=== PATIENT | female | born 1990 | race Caucasian/White ===

== ENCOUNTER 2016-04-08 14:08 | Emergency (ER) | payer BC, SELFPAY ==
[2016-04-08 15:39] LABS: MEAN CORPUSCULAR HEMOGLOBIN 30.1 pg (27.0-33.0); MEAN CORPUSCULAR HGB CONC 33.6 g/dl (32.0-36.5); MEAN CORPUSCULAR VOLUME 89.6 fl (80.0-96.0); RED CELL DISTRIBUTION WIDTH 12.3 % (11.5-14.5); WHITE BLOOD COUNT 10.4 K/mm3 (4.0-10.0)
[2016-04-08 16:24] LABS: ANION GAP 9 MEQ/L (8-16); BLOOD UREA NITROGEN 15 MG/DL (7-18); CALCIUM LEVEL 9.5 MG/DL (8.5-10.1); CARBON DIOXIDE LEVEL 25 MEQ/L (21-32); CHLORIDE LEVEL 107 MEQ/L (98-107); CREATININE FOR GFR 0.66 MG/DL (0.55-1.02); GLOMERULAR FILTRATION RATE > 60.0 (>60); GLUCOSE, FASTING 81 MG/DL (70-105); HCG, SERUM QUANTITATIVE 56550 MIU/ML; POTASSIUM SERUM 3.9 MEQ/L (3.5-5.1); SODIUM LEVEL 141 MEQ/L (136-145)
--- NOTE | 2016-04-08 18:00 | EDDOCDS ---
Nurse's Notes [facility] Name: Hue Adams Age: 26 yrs Sex: Female : 1990 Arrival Date: 04/08/2016 Time: 14:08 Bed 8 Private MD: Angie Mccord Abdul Diagnosis: 8 weeks gestation of Presentation: 04/08 14:15 Presenting complaint: Patient states: low abdominal pain for several days. Reports has kr3 had 2 positive home test but she is unable to get due to endometreosis. Risk factors: the patient reports no vaginal bleeding. Adult Sepsis Screening: The patient does not have new or worsening altered mentation. Patient's respiratory rate is less than 22. Systolic blood pressure is greater than 100. Patient has a qSOFA score of 0- Negative Sepsis Screen. Suicide/Homicide risk assessment- the patient denies having any suicidal and/or homicidal ideations and does not present with any other emotional, behavioral or mental health complaints. Status: Patient is not a business services sales representative or dependent. Transition of care: patient was not received from another setting of care. 14:15 Acuity: TANIA Level 3 kr3 14:15 Method Of Arrival: Walkin/Carried/Asstd kr3 Triage Assessment: 14:17 General: Appears distressed, Behavior is appropriate for age, cooperative. Pain: kr3 Location: right lower quadrant and left lower quadrant Pain currently is 8 out of 10 on a pain scale. Pain: Quality of pain is described as stabbing. HIV screening NA for this visit Offered previously. Respiratory: Respiratory effort is even, unlabored. GI: Reports nausea. : Denies vaginal bleeding. Derm: Skin is pink, warm & dry. 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 none - PMHx: Lupus; Endometriosis; Polycystic Ovary Disease; - PSHx: none; - Social history: Smoking status: Patient uses tobacco products, current every day smoker. No barriers to communication noted, The patient speaks fluent Tajik, Speaks appropriately for age. - Family history: Not pertinent. - : The pt / caregiver states he / she is not on anticoagulants. Home medication list is obtained from the patient. - Exposure Risk Screening:: None identified. Screenin:34 Screening information is obtained from the patient. Fall risk: No risks identified. mlb1 Assistance ADL's: requires no assistance with activities of daily living. Abuse/DV Screen: The patient / caregiver reports he/she is: not in a situation that causes fear, pain or injury. Nutritional screening: No deficits noted. Advance Directives: Currently, there is no health care proxy. home support is adequate. Assessment: 15:33 General: Appears in no apparent distress, comfortable, Behavior is appropriate for age, mlb1 cooperative. Pain: Location: left lower quadrant and right lower quadrant Pain currently is 8 out of 10 on a pain scale. GI: Abdomen is obese, Bowel sounds present X 4 quads. Abd is soft X 4 quads Abd is tender to palpation in right lower quadrant and left lower quadrant Reports nausea. Derm: No deficits noted. 16:30 General: Appears in no apparent distress, comfortable, Behavior is appropriate for age, mlb1 cooperative. Pain: Location: left lower quadrant and right lower quadrant Pain currently is 8 out of 10 on a pain scale. Respiratory: No deficits noted. 17:30 General: Appears in no apparent distress, comfortable, Behavior is appropriate for age, mlb1 cooperative. Pain: Location: left lower quadrant and right lower quadrant Pain currently is 6 out of 10 on a pain scale. Respiratory: No deficits noted. 17:59 General: Appears in no apparent distress, comfortable, Behavior is appropriate for age, mlb1 cooperative. Pain: Location: left lower quadrant and right lower quadrant Pain currently is 6 out of 10 on a pain scale. Respiratory: No deficits noted. Vital Signs: 14:10 BP 126 / 68; Pulse 98; Resp 18 S; Temp 97.2(O); Pulse Ox 99% on R/A; Weight 81.65 kg gr2 (R); Height 5 ft. 7 in. (170.18 cm) (R); Pain 10/10; 17:58 BP 145 / 83; Pulse 72; Resp 16; Temp 97.4(TE); Pulse Ox 98% on R/A; Pain 6/10; mlb1 14:10 Body Mass Index 28.19 (81.65 kg, 170.18 cm) gr2 Vitals: 14:10 Log In Time: April 08, 2016 at 14:10. gr2 ED Course: 14:10 Patient visited by Isamar Reyes. gr2 14:10 Angie Mccord is Private Physician. gr2 14:10 Patient moved to Waiting gr2 14:11 Patient visited by Isamar Reyes. gr2 14:11 Patient moved to Pre RCE gr2 14:16 Triage Initiated kr3 14:51 Patient moved to 8 kr3 14:56 [facility] ke 14:56 Patient visited by Tam Bueno FNP. ke 14:56 Patient visited by Tam Bueno FNP. ke 15:23 [facility] Payment Agreement was scanned into [email or web address] and attached to record. gjb 15:32 Patient visited by Tam Bueno FNP. ke 15:33 BMP Sent. mlb1 15:33 CBC Sent. mlb1 15:33 Urine Culture Sent. mlb1 15:33 UA Sent. mlb1 15:33 Hcg, Serum Quantitative Sent. mlb1 15:33 Type & Screen Sent. mlb1 15:34 Inserted saline lock: 20 gauge in left antecubital area and blood collected. The mlb1 patient tolerated the procedure well. No procedures done that require assistance. 15:35 Patient visited by Ke Marcelo RN. mlb1 15:35 The patient / caregiver is instructed regarding the plan of care and ED course. mlb1 16:03 Patient visited by Tam Bueno FNP. ke 16:41 Patient visited by Tam Bueno FNP. ke 16:50 Patient moved to Ultrasound am17 16:59 Patient moved to 8 am17 17:16 Patient visited by Tam Bueno FNP. ke 17:24 Ernie Poole MD is Referral Physician. ke 17:57 Patient visited by Ke Marcelo, RN. mlb1 17:57 Discontinued lock intact, bleeding controlled, pressure dressing applied, No mlb1 redness/swelling at site. 18:00 Patient visited by Ke Marcelo, DELMA. mlb1 Order Results: Lab Order: Type & Screen; SPEC'M 04/08/16 15:28 Test: BLOOD TYPE; Value: B POS; Status: F Test: AB SCREEN (INDIRECT ROCIO)GEL; Value: NEGATIVE; Status: F Lab Order: Hcg, Serum Quantitative; SPEC'M 04/08/16 15:28 Test: HCG, SERUM QUANTITATIVE; Value: [id number]; Units: MIU/ML; Status: F Test Note: ; GESTATIONAL AGE APPROXIMATE HCG RANGE (MIU/ML) 0.2-1 WEEK 5-50 1-2 WEEKS 50-500 2-3 WEEKS 100-5,000 3-4 WEEKS 500-10,000 4-5 WEEKS 1,000-50,000 5-6 WEEKS 10,000-100,000 6-8 WEEKS 15,000-200,000 2-3 MONTHS 10,000-100,000 NON FEMALES LESS THAN 3.0 Patient samples may contain human heterophilic antibodies that could react with immunoassays to give falsely elevated or depressed results. This assay has been designed to minimize interference from heterophilic antibodies. Elevated hCG levels have also been associated with trophoblastic disease and nontrophoblastic neoplasms. The possibility of having these diseases should be considered before a diagnosis of is made. This test is not intended for use as a surrogate marker for aiding in the diagnosis or monitoring the treatment of cancer patients. Siemens Hordspot methodology. Lab Order: UA; SPEC'M 04/08/16 15:28 Test: APPEARANCE, URINE; Value: HAZY; Range: CLEAR; Status: F Test: COLOR, URINE; Value: YELLOW; Range: YELLOW; Status: F Test: PH,URINE; Value: 5.0; Range: 5.0-9.0; Units: UNITS; Status: F Test: SPECIFIC GRAVITY URINE AUTO; Value: 1.019; Range: 1.002-1.035; Status: F Test: PROTEIN, URINE AUTO; Value: NEGATIVE; Range: NEGATIVE; Units: mg/dL; Status: F Test: GLUCOSE, URINE (UA) AUTO; Value: NEGATIVE; Range: NEGATIVE; Units: mg/dL; Status: F Test: KETONE, URINE AUTO; Value: NEGATIVE; Range: NEGATIVE; Units: mg/dL; Status: F Test: UROBILINOGEN, URINE AUTO; Value: 0.2; Range: 0.0-2.0; Units: mg/dL; Status: F Test: BILIRUBIN, URINE AUTO; Value: NEGATIVE; Range: NEGATIVE; Status: F Test: NITRITE, URINE AUTO; Value: NEGATIVE; Range: NEGATIVE; Status: F Test: LEUKOCYTE ESTERASE, URINE AUTO; Value: 2+; Range: NEGATIVE; Abnormal: Above high normal; Status: F Test: BLOOD, URINE BLOOD; Value: 2+; Range: NEGATIVE; Abnormal: Above high normal; Status: F Test: WBC, URINE AUTO; Value: 5; Range: 0-3; Abnormal: Above high normal; Units: /HPF; Status: F Test: RBC, URINE AUTO; Value: 19; Range: 0-3; Abnormal: Above high normal; Units: /HPF; Status: F Test: BACTERIA, URINE AUTO; Value: NEGATIVE; Range: NEGATIVE; Status: F Test: SQUAMOUS EPITHELIAL CELL UR AU; Value: 2; Range: 0-6; Units: /HPF; Status: F Test: HYALINE CAST, URINE AUTO; Value: 0; Range: 0-1; Units: /LPF; Status: F Lab Order: CBC; SPEC'M 04/08/16 15:28 Test: WHITE BLOOD COUNT; Value: 10.4; Range: 4.0-10.0; Abnormal: Above high normal; Units: K/mm3; Status: F Test: RED BLOOD COUNT; Value: 4.23; Range: 4.00-5.40; Units: M/mm3; Status: F Test: HEMOGLOBIN; Value: 12.8; Range: 12.0-16.0; Units: g/dl; Status: F Test: HEMATOCRIT; Value: 37.9; Range: 36.0-47.0; Units: %; Status: F Test: MEAN CORPUSCULAR VOLUME; Value: 89.6; Range: 80.0-96.0; Units: fl; Status: F Test: MEAN CORPUSCULAR HEMOGLOBIN; Value: 30.1; Range: 27.0-33.0; Units: pg; Status: F Test: MEAN CORPUSCULAR HGB CONC; Value: 33.6; Range: 32.0-36.5; Units: g/dl; Status: F Test: RED CELL DISTRIBUTION WIDTH; Value: 12.3; Range: 11.5-14.5; Units: %; Status: F Test: PLATELET COUNT, AUTOMATED; Value: 187; Range: 150-450; Units: k/mm3; Status: F Lab Order: BMP; SPEC'M 04/08/16 15:28 Test: GLUCOSE, FASTING; Value: 81; Range: 70-105; Units: MG/DL; Status: F Test: BLOOD UREA NITROGEN; Value: 15; Range: 7-18; Units: MG/DL; Status: F Test: CREATININE FOR GFR; Value: 0.66; Range: 0.55-1.02; Units: MG/DL; Status: F Test: GLOMERULAR FILTRATION RATE; Value: > 60.0; Range: >60; Status: F Test: SODIUM LEVEL; Value: 141; Range: 136-145; Units: MEQ/L; Status: F Test: POTASSIUM SERUM; Value: 3.9; Range: 3.5-5.1; Units: MEQ/L; Status: F Test: CHLORIDE LEVEL; Value: 107; Range: 98-107; Units: MEQ/L; Status: F Test: CARBON DIOXIDE LEVEL; Value: 25; Range: 21-32; Units: MEQ/L; Status: F Test: ANION GAP; Value: 9; Range: 8-16; Units: MEQ/L; Status: F Test: CALCIUM LEVEL; Value: 9.5; Range: 8.5-10.1; Units: MG/DL; Status: F Test Note: ; Units are mL/min/1.73 m2 Chronic Kidney Disease Staging per NKF: Stage I & II GFR >=60 Normal to Mildly Decreased Stage III GFR 30-59 Moderately Decreased Stage IV GFR 15-29 Severely Decreased Stage V GFR <15 Very Little GFR Left ESRD GFR <15 on MED[employer]INAL PLANT PICKER Outcome: 17:24 Discharge ordered by Provider. ke 17:58 Discharge Assessment: Patient awake, alert and oriented x 3. No cognitive and/or mlb1 functional deficits noted. Patient verbalized understanding of disposition instructions. patient administered narcotics - no. The following High Risk Discharge criteria are identified: None. Discharged to home ambulatory. Condition: good. Discharge instructions given to patient, Instructed on discharge instructions, follow up and referral plans. Demonstrated understanding of instructions, medications, Pt was receptive of discharge instructions/ teaching. Prescriptions given X 1. Ultrasound Study completed. Property sent home with patient. 18:00 Patient left the ED. mlb1 Signatures: Tam Bueno, DEPUTY PROGRAM MANAGER DEPUTY PROGRAM MANAGER Ke Edwards RN RN mlb1 Shonad VieyraRN RN kr3 Isamar Reyes 2 Truong, Rosie am17 Toro, Marely gjb MTDD
--- NOTE | 2016-04-08 18:00 | EDDOCDS ---
Physician Documentation [facility] Name: Hue Adams Age: 26 yrs Sex: Female : 1990 Arrival Date: 04/08/2016 Time: 14:08 Bed 8 Private MD: Angie Mccord Abdul Disposition: 04/08/16 17:24 Discharged to Home/Self Care. Impression: 8 weeks gestation of . - Condition is Stable. - Discharge Instructions: First Trimester of . - Prescriptions for Zofran 4 mg Oral Tablet - take 1 tablet by ORAL route 4 times per day As needed; 10 tablet. - Medication Reconciliation, Local Pharmacy Hours form. - Follow up: Ernie Poole MD; When: 4 - 5 days; Reason: Recheck today's complaints, Continuance of care. - Problem is an ongoing problem. - Symptoms are unchanged. Historical: - Allergies: SULFA (SULFONAMIDES); - Home Meds: 1. none - PMHx: Lupus; Endometriosis; Polycystic Ovary Disease; - PSHx: none; - Social history: Smoking status: Patient uses tobacco products, current every day smoker. No barriers to communication noted, The patient speaks fluent Welsh, Speaks appropriately for age. - Family history: Not pertinent. - : The pt / caregiver states he / she is not on anticoagulants. Home medication list is obtained from the patient. - Exposure Risk Screening:: None identified. 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 7 in. (170.18 cm) (R); Pain 10/10; 17:58 BP 145 / 83; Pulse 72; Resp 16; Temp 97.4(TE); Pulse Ox 98% on R/A; Pain 6/10; mlb1 14:10 Body Mass Index 28.19 (81.65 kg, 170.18 cm) gr2 MDM: 14:58 IV Saline Lock ordered. ke 14:59 Type & Screen Ordered. EDMS 15:00 Hcg, Serum Quantitative Ordered. EDMS 15:00 UA Ordered. EDMS 15:00 CBC Ordered. EDMS 15:00 BMP Ordered. EDMS 15:00 Urine Culture Ordered. EDMS 15:23 [facility] Payment Agreement was scanned into [employer] and attached to record. gjb 15:23 Financial registration complete. gjb 16:14 UA Reviewed. ke 16:14 CBC Reviewed. ke 16:41 Type & Screen Reviewed. ke 16:41 Hcg, Serum Quantitative Reviewed. ke 16:41 BMP Reviewed. ke 16:43 US 1st trimester Ordered. EDMS Signatures: Dispatcher [employer] EDMS Tam Bueno, HOME HEALTH AIDE HOME HEALTH AIDE Ke Edwards RN RN mlb1 Shonda VieyraRN RN kr3 Marely Toro The chart was reviewed and I authenticate all verbal orders and agree with the evaluation and treatment provided.Attachments: 15:23 [facility] Payment Agreement [facility] MTDD
--- NOTE | 2016-04-08 18:03 | REP ---
First trimester OB ultrasound 04/08/2016 Indication: Pelvic pain, Comparison: None Findings: Study performed transabdominally. The date of last menstrual period 02/18/2016. Based on last menstrual period, fetus should be 7-week- 1 day with DENISE . At this time ,single intrauterine gestational sac containing a single pole is noted with crown-rump length 1.6 cm ,corresponding to 7-fncc-6-day gestational age by ultrasound. heart rate is 157 beats per minute by M-mode. A small yolk sac is identified. There is no subchorionic hemorrhage. There is no free fluid in the cul-de-sac. Left ovary was visualized measuring 3.3 x 3 x 2.0 cm. The right ovary was not visualized. Impression: Single intrauterine fetus of 6-jhez-1-day gestational age by ultrasound with heart rate 157 beats per minute by M-mode. DENISE based on today's study is 11/18/2016 No subchorionic hemorrhage. Recommend follow-up anatomy screening ultrasound at 19-20 weeks gestational age Signed by Pretty Kovacs MD 04/08/2016 05:55 P
--- NOTE | 2016-04-10 19:00 | EDDOCDS ---
Physician Documentation [facility] Name: Hue Adams Age: 26 yrs Sex: Female : 1990 Arrival Date: 04/08/2016 Time: 14:08 Bed 8 Private MD: Angie Mccord Abdul Disposition: 04/08/16 17:24 Discharged to Home/Self Care. Impression: 8 weeks gestation of . - Condition is Stable. - Discharge Instructions: First Trimester of . - Prescriptions for Zofran 4 mg Oral Tablet - take 1 tablet by ORAL route 4 times per day As needed; 10 tablet. - Medication Reconciliation, Local Pharmacy Hours form. - Follow up: Ernie Poole MD; When: 4 - 5 days; Reason: Recheck today's complaints, Continuance of care. - Problem is an ongoing problem. - Symptoms are unchanged. Historical: - Allergies: SULFA (SULFONAMIDES); - Home Meds: 1. none - PMHx: Lupus; Endometriosis; Polycystic Ovary Disease; - PSHx: none; - Social history: Smoking status: Patient uses tobacco products, current every day smoker. No barriers to communication noted, The patient speaks fluent Spanish, Speaks appropriately for age. - Family history: Not pertinent. - : The pt / caregiver states he / she is not on anticoagulants. Home medication list is obtained from the patient. - Exposure Risk Screening:: None identified. 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 7 in. (170.18 cm) (R); Pain 10/10; 17:58 BP 145 / 83; Pulse 72; Resp 16; Temp 97.4(TE); Pulse Ox 98% on R/A; Pain 6/10; mlb1 14:10 Body Mass Index 28.19 (81.65 kg, 170.18 cm) gr2 MDM: 14:58 IV Saline Lock ordered. ke 14:59 Type & Screen Ordered. EDMS 15:00 Hcg, Serum Quantitative Ordered. EDMS 15:00 UA Ordered. EDMS 15:00 CBC Ordered. EDMS 15:00 BMP Ordered. EDMS 15:00 Urine Culture Ordered. EDMS 15:23 [facility] Payment Agreement was scanned into [employer] and attached to record. gjb 15:23 Financial registration complete. gjb 16:14 UA Reviewed. ke 16:14 CBC Reviewed. ke 16:41 Type & Screen Reviewed. ke 16:41 Hcg, Serum Quantitative Reviewed. ke 16:41 BMP Reviewed. ke 16:43 US 1st trimester Ordered. EDMS 04/09 06:54 T-Sheet-- Draft Copy was scanned into [employer] and attached to record. gb Signatures: Dispatcher [employer] EDTX Arielle Monson, Reg Reg gb Tam Bueno, PSYCHIATRIC CLINICIAN PSYCHIATRIC CLINICIAN Ke Edwards RN RN mlb1 Shonda Vieyra,RN RN kr3 Marely Toro The chart was reviewed and I authenticate all verbal orders and agree with the evaluation and treatment provided.Attachments: 04/08 15:23 [facility] Payment Agreement gjb 04/09 06:54 T-Sheet-- Draft Copy gb Chart Complete MTDD
--- NOTE | 2016-04-10 19:00 | EDDOCDS ---
Nurse's Notes [facility] Name: Hue Adams Age: 26 yrs Sex: Female : 1990 Arrival Date: 04/08/2016 Time: 14:08 Bed 8 Private MD: Angie Mccord Abdul Diagnosis: 8 weeks gestation of Presentation: 04/08 14:15 Presenting complaint: Patient states: low abdominal pain for several days. Reports has kr3 had 2 positive home test but she is unable to get due to endometreosis. Risk factors: the patient reports no vaginal bleeding. Adult Sepsis Screening: The patient does not have new or worsening altered mentation. Patient's respiratory rate is less than 22. Systolic blood pressure is greater than 100. Patient has a qSOFA score of 0- Negative Sepsis Screen. Suicide/Homicide risk assessment- the patient denies having any suicidal and/or homicidal ideations and does not present with any other emotional, behavioral or mental health complaints. Status: Patient is not a internal revenue service agent or dependent. Transition of care: patient was not received from another setting of care. 14:15 Acuity: TANIA Level 3 kr3 14:15 Method Of Arrival: Walkin/Carried/Asstd kr3 Triage Assessment: 14:17 General: Appears distressed, Behavior is appropriate for age, cooperative. Pain: kr3 Location: right lower quadrant and left lower quadrant Pain currently is 8 out of 10 on a pain scale. Pain: Quality of pain is described as stabbing. HIV screening NA for this visit Offered previously. Respiratory: Respiratory effort is even, unlabored. GI: Reports nausea. : Denies vaginal bleeding. Derm: Skin is pink, warm & dry. 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 none - PMHx: Lupus; Endometriosis; Polycystic Ovary Disease; - PSHx: none; - Social history: Smoking status: Patient uses tobacco products, current every day smoker. No barriers to communication noted, The patient speaks fluent Egyptian, Speaks appropriately for age. - Family history: Not pertinent. - : The pt / caregiver states he / she is not on anticoagulants. Home medication list is obtained from the patient. - Exposure Risk Screening:: None identified. Screenin:34 Screening information is obtained from the patient. Fall risk: No risks identified. mlb1 Assistance ADL's: requires no assistance with activities of daily living. Abuse/DV Screen: The patient / caregiver reports he/she is: not in a situation that causes fear, pain or injury. Nutritional screening: No deficits noted. Advance Directives: Currently, there is no health care proxy. home support is adequate. Assessment: 15:33 General: Appears in no apparent distress, comfortable, Behavior is appropriate for age, mlb1 cooperative. Pain: Location: left lower quadrant and right lower quadrant Pain currently is 8 out of 10 on a pain scale. GI: Abdomen is obese, Bowel sounds present X 4 quads. Abd is soft X 4 quads Abd is tender to palpation in right lower quadrant and left lower quadrant Reports nausea. Derm: No deficits noted. 16:30 General: Appears in no apparent distress, comfortable, Behavior is appropriate for age, mlb1 cooperative. Pain: Location: left lower quadrant and right lower quadrant Pain currently is 8 out of 10 on a pain scale. Respiratory: No deficits noted. 17:30 General: Appears in no apparent distress, comfortable, Behavior is appropriate for age, mlb1 cooperative. Pain: Location: left lower quadrant and right lower quadrant Pain currently is 6 out of 10 on a pain scale. Respiratory: No deficits noted. 17:59 General: Appears in no apparent distress, comfortable, Behavior is appropriate for age, mlb1 cooperative. Pain: Location: left lower quadrant and right lower quadrant Pain currently is 6 out of 10 on a pain scale. Respiratory: No deficits noted. Vital Signs: 14:10 BP 126 / 68; Pulse 98; Resp 18 S; Temp 97.2(O); Pulse Ox 99% on R/A; Weight 81.65 kg gr2 (R); Height 5 ft. 7 in. (170.18 cm) (R); Pain 10/10; 17:58 BP 145 / 83; Pulse 72; Resp 16; Temp 97.4(TE); Pulse Ox 98% on R/A; Pain 6/10; mlb1 14:10 Body Mass Index 28.19 (81.65 kg, 170.18 cm) gr2 Vitals: 14:10 Log In Time: April 08, 2016 at 14:10. gr2 ED Course: 14:10 Patient visited by Isamar Reyes. gr2 14:10 Angie Mccord is Private Physician. gr2 14:10 Patient moved to Waiting gr2 14:11 Patient visited by Isamar Reyes. gr2 14:11 Patient moved to Pre RCE gr2 14:16 Triage Initiated kr3 14:51 Patient moved to 8 kr3 14:56 [facility]. ke 14:56 Patient visited by Tam Bueno FNP. ke 14:56 Patient visited by Tam Bueno FNP. ke 15:23 [facility] Payment Agreement was scanned into [employer] and attached to record. gjb 15:32 Patient visited by Tam Bueno FNP. ke 15:33 BMP Sent. mlb1 15:33 CBC Sent. mlb1 15:33 Urine Culture Sent. mlb1 15:33 UA Sent. mlb1 15:33 Hcg, Serum Quantitative Sent. mlb1 15:33 Type & Screen Sent. mlb1 15:34 Inserted saline lock: 20 gauge in left antecubital area and blood collected. The mlb1 patient tolerated the procedure well. No procedures done that require assistance. 15:35 Patient visited by Ke Marcelo RN. mlb1 15:35 The patient / caregiver is instructed regarding the plan of care and ED course. mlb1 16:03 Patient visited by Tam Bueno FNP. ke 16:41 Patient visited by Tam Bueno FNP. ke 16:50 Patient moved to Ultrasound am17 16:59 Patient moved to 8 am17 17:16 Patient visited by Tam Bueno FNP. ke 17:24 Ernie Poole MD is Referral Physician. ke 17:57 Patient visited by Ke Marcelo, DELMA. mlb1 17:57 Discontinued lock intact, bleeding controlled, pressure dressing applied, No mlb1 redness/swelling at site. 18:00 Patient visited by Ke Marcelo, DELMA. mlb1 18:11 US 1st trimester Returned. EDMS 04/09 06:54 T-Sheet-- Draft Copy was scanned into [employer] and attached to record. gb Order Results: Lab Order: Type & Screen; SPEC'M 04/08/16 15:28 Test: BLOOD TYPE; Value: B POS; Status: F Test: AB SCREEN (INDIRECT ROCIO)GEL; Value: NEGATIVE; Status: F Lab Order: Hcg, Serum Quantitative; SPEC'M 04/08/16 15:28 Test: HCG, SERUM QUANTITATIVE; Value: [id number]; Units: MIU/ML; Status: F Test Note: ; GESTATIONAL AGE APPROXIMATE HCG RANGE (MIU/ML) 0.2-1 WEEK 5-50 1-2 WEEKS 50-500 2-3 WEEKS 100-5,000 3-4 WEEKS 500-10,000 4-5 WEEKS 1,000-50,000 5-6 WEEKS 10,000-100,000 6-8 WEEKS 15,000-200,000 2-3 MONTHS 10,000-100,000 NON FEMALES LESS THAN 3.0 Patient samples may contain human heterophilic antibodies that could react with immunoassays to give falsely elevated or depressed results. This assay has been designed to minimize interference from heterophilic antibodies. Elevated hCG levels have also been associated with trophoblastic disease and nontrophoblastic neoplasms. The possibility of having these diseases should be considered before a diagnosis of is made. This test is not intended for use as a surrogate marker for aiding in the diagnosis or monitoring the treatment of cancer patients. Siemens Jumblets methodology. Lab Order: UA; SPEC'M 04/08/16 15:28 Test: APPEARANCE, URINE; Value: HAZY; Range: CLEAR; Status: F Test: COLOR, URINE; Value: YELLOW; Range: YELLOW; Status: F Test: PH,URINE; Value: 5.0; Range: 5.0-9.0; Units: UNITS; Status: F Test: SPECIFIC GRAVITY URINE AUTO; Value: 1.019; Range: 1.002-1.035; Status: F Test: PROTEIN, URINE AUTO; Value: NEGATIVE; Range: NEGATIVE; Units: mg/dL; Status: F Test: GLUCOSE, URINE (UA) AUTO; Value: NEGATIVE; Range: NEGATIVE; Units: mg/dL; Status: F Test: KETONE, URINE AUTO; Value: NEGATIVE; Range: NEGATIVE; Units: mg/dL; Status: F Test: UROBILINOGEN, URINE AUTO; Value: 0.2; Range: 0.0-2.0; Units: mg/dL; Status: F Test: BILIRUBIN, URINE AUTO; Value: NEGATIVE; Range: NEGATIVE; Status: F Test: NITRITE, URINE AUTO; Value: NEGATIVE; Range: NEGATIVE; Status: F Test: LEUKOCYTE ESTERASE, URINE AUTO; Value: 2+; Range: NEGATIVE; Abnormal: Above high normal; Status: F Test: BLOOD, URINE BLOOD; Value: 2+; Range: NEGATIVE; Abnormal: Above high normal; Status: F Test: WBC, URINE AUTO; Value: 5; Range: 0-3; Abnormal: Above high normal; Units: /HPF; Status: F Test: RBC, URINE AUTO; Value: 19; Range: 0-3; Abnormal: Above high normal; Units: /HPF; Status: F Test: BACTERIA, URINE AUTO; Value: NEGATIVE; Range: NEGATIVE; Status: F Test: SQUAMOUS EPITHELIAL CELL UR AU; Value: 2; Range: 0-6; Units: /HPF; Status: F Test: HYALINE CAST, URINE AUTO; Value: 0; Range: 0-1; Units: /LPF; Status: F Lab Order: Urine Culture; SPEC'M 04/08/16 15:28 Test: URINE CULTURE; Value: URINE CULTURE RESULT NO GROWTH; Status: F Lab Order: CBC; SPEC'M 04/08/16 15:28 Test: WHITE BLOOD COUNT; Value: 10.4; Range: 4.0-10.0; Abnormal: Above high normal; Units: K/mm3; Status: F Test: RED BLOOD COUNT; Value: 4.23; Range: 4.00-5.40; Units: M/mm3; Status: F Test: HEMOGLOBIN; Value: 12.8; Range: 12.0-16.0; Units: g/dl; Status: F Test: HEMATOCRIT; Value: 37.9; Range: 36.0-47.0; Units: %; Status: F Test: MEAN CORPUSCULAR VOLUME; Value: 89.6; Range: 80.0-96.0; Units: fl; Status: F Test: MEAN CORPUSCULAR HEMOGLOBIN; Value: 30.1; Range: 27.0-33.0; Units: pg; Status: F Test: MEAN CORPUSCULAR HGB CONC; Value: 33.6; Range: 32.0-36.5; Units: g/dl; Status: F Test: RED CELL DISTRIBUTION WIDTH; Value: 12.3; Range: 11.5-14.5; Units: %; Status: F Test: PLATELET COUNT, AUTOMATED; Value: 187; Range: 150-450; Units: k/mm3; Status: F Lab Order: PAMELA RICH'Zohreh 04/08/16 15:28 Test: GLUCOSE, FASTING; Value: 81; Range: 70-105; Units: MG/DL; Status: F Test: BLOOD UREA NITROGEN; Value: 15; Range: 7-18; Units: MG/DL; Status: F Test: CREATININE FOR GFR; Value: 0.66; Range: 0.55-1.02; Units: MG/DL; Status: F Test: GLOMERULAR FILTRATION RATE; Value: > 60.0; Range: >60; Status: F Test: SODIUM LEVEL; Value: 141; Range: 136-145; Units: MEQ/L; Status: F Test: POTASSIUM SERUM; Value: 3.9; Range: 3.5-5.1; Units: MEQ/L; Status: F Test: CHLORIDE LEVEL; Value: 107; Range: 98-107; Units: MEQ/L; Status: F Test: CARBON DIOXIDE LEVEL; Value: 25; Range: 21-32; Units: MEQ/L; Status: F Test: ANION GAP; Value: 9; Range: 8-16; Units: MEQ/L; Status: F Test: CALCIUM LEVEL; Value: 9.5; Range: 8.5-10.1; Units: MG/DL; Status: F Test Note: ; Units are mL/min/1.73 m2 Chronic Kidney Disease Staging per NKF: Stage I & II GFR >=60 Normal to Mildly Decreased Stage III GFR 30-59 Moderately Decreased Stage IV GFR 15-29 Severely Decreased Stage V GFR <15 Very Little GFR Left ESRD GFR <15 on GRADES 9 THROUGH 12 TEACHER Radiology Order: US 1st trimester Test: US 1st trimester REASON FOR EXAMINATION: pelvic pain ; First trimester OB ultrasound 04/08/2016; ; Indication: Pelvic pain, ; ; Comparison: None; ; Findings: Study performed transabdominally. The date of last menstrual period; 02/18/2016. Based on last menstrual period, fetus should be 7-week- 1 day with; DENISE . At this time ,single intrauterine gestational sac containing a; single pole is noted with crown-rump length 1.6 cm ,corresponding to; 5-jrcs-0-day gestational age by ultrasound. heart rate is 157 beats per; minute by M-mode. A small yolk sac is identified. There is no subchorionic; hemorrhage.; ; There is no free fluid in the cul-de-sac. Left ovary was visualized measuring; 3.3 x 3 x 2.0 cm. The right ovary was not visualized.; ; Impression:; ; Single intrauterine fetus of 0-xptf-4-day gestational age by ultrasound with; heart rate 157 beats per minute by M-mode. DENISE based on today's study is; 11/18/2016; ; No subchorionic hemorrhage.; ; Recommend follow-up anatomy screening ultrasound at 19-20 weeks gestational age; ; ; Signed by; Pretty Kovacs MD 04/08/2016 05:55 P; Outcome: 04/08 17:24 Discharge ordered by Provider. carmelina 17:58 Discharge Assessment: Patient awake, alert and oriented x 3. No cognitive and/or mlb1 functional deficits noted. Patient verbalized understanding of disposition instructions. patient administered narcotics - no. The following High Risk Discharge criteria are identified: None. Discharged to home ambulatory. Condition: good. Discharge instructions given to patient, Instructed on discharge instructions, follow up and referral plans. Demonstrated understanding of instructions, medications, Pt was receptive of discharge instructions/ teaching. Prescriptions given X 1. Ultrasound Study completed. Property sent home with patient. 18:00 Patient left the ED. mlb1 Signatures: Dispatcher [employer] EDMS Arielle Monson, Tam Jean, SPOOLING MACHINE OPERATOR SPOOLING MACHINE OPERATOR Ke Edwards RN RN mlb1 Shonda Vieyra,DELMA RN kr3 Isamar Reyes gr2 Rosie Truong Gabriela gjb Chart Complete MTDD
--- NOTE | 2016-04-10 19:00 | EDDOCDS ---
Physician Documentation [facility] Name: Hue Adams Age: 26 yrs Sex: Female : 1990 Arrival Date: 04/08/2016 Time: 14:08 Bed 8 Private MD: Angie Mccord Abdul Disposition: 04/08/16 17:24 Discharged to Home/Self Care. Impression: 8 weeks gestation of . - Condition is Stable. - Discharge Instructions: First Trimester of . - Prescriptions for Zofran 4 mg Oral Tablet - take 1 tablet by ORAL route 4 times per day As needed; 10 tablet. - Medication Reconciliation, Local Pharmacy Hours form. - Follow up: Ernie Poole MD; When: 4 - 5 days; Reason: Recheck today's complaints, Continuance of care. - Problem is an ongoing problem. - Symptoms are unchanged. Historical: - Allergies: SULFA (SULFONAMIDES); - Home Meds: 1. none - PMHx: Lupus; Endometriosis; Polycystic Ovary Disease; - PSHx: none; - Social history: Smoking status: Patient uses tobacco products, current every day smoker. No barriers to communication noted, The patient speaks fluent Tajik, Speaks appropriately for age. - Family history: Not pertinent. - : The pt / caregiver states he / she is not on anticoagulants. Home medication list is obtained from the patient. - Exposure Risk Screening:: None identified. 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 7 in. (170.18 cm) (R); Pain 10/10; 17:58 BP 145 / 83; Pulse 72; Resp 16; Temp 97.4(TE); Pulse Ox 98% on R/A; Pain 6/10; mlb1 14:10 Body Mass Index 28.19 (81.65 kg, 170.18 cm) gr2 MDM: 14:58 IV Saline Lock ordered. ke 14:59 Type & Screen Ordered. EDMS 15:00 Hcg, Serum Quantitative Ordered. EDMS 15:00 UA Ordered. EDMS 15:00 CBC Ordered. EDMS 15:00 BMP Ordered. EDMS 15:00 Urine Culture Ordered. EDMS 15:23 [facility] Payment Agreement was scanned into [employer] and attached to record. gjb 15:23 Financial registration complete. gjb 16:14 UA Reviewed. ke 16:14 CBC Reviewed. ke 16:41 Type & Screen Reviewed. ke 16:41 Hcg, Serum Quantitative Reviewed. ke 16:41 BMP Reviewed. ke 16:43 US 1st trimester Ordered. EDMS 04/09 06:54 T-Sheet-- Draft Copy was scanned into [employer] and attached to record. gb Signatures: Dispatcher [employer] EDOR Arielle Monson, Reg Reg gb Tam Bueno, EDUCATION TECHNICIAN EDUCATION TECHNICIAN Ke Edwards RN RN mlb1 Shonda Vieyra,RN RN kr3 Marely Toro The chart was reviewed and I authenticate all verbal orders and agree with the evaluation and treatment provided.Attachments: 04/08 15:23 [facility] Payment Agreement gjb 04/09 06:54 T-Sheet-- Draft Copy gb Chart Complete MTDD
== END 2016-04-08 18:00 | disposition home or self-care (01) ==
LOC: M ED 14:08
DX: O99.89 Other specified diseases and conditions complicating pregnancy, childbirth and the puerperium (principal); R10.2 Pelvic and perineal pain; M32.10 Systemic lupus erythematosus, organ or system involvement unspecified; Z88.2 Allergy status to sulfonamides; Z3A.08 8 weeks gestation of pregnancy

== ENCOUNTER → 2016-05-19 | Outpatient (REF) | payer OTHER ==
[2016-05-19 11:48] LABS: MEAN CORPUSCULAR HEMOGLOBIN 30.5 pg (27.0-33.0); MEAN CORPUSCULAR HGB CONC 33.6 g/dl (32.0-36.5); MEAN CORPUSCULAR VOLUME 90.7 fl (80.0-96.0); RED CELL DISTRIBUTION WIDTH 13.1 % (11.5-14.5); WHITE BLOOD COUNT 9.8 K/mm3 (4.0-10.0)
[2016-05-19 12:05] LABS: ALBUMIN 3.9 GM/DL (3.2-5.2); ALBUMIN/GLOBULIN RATIO 1.56 (1.00-1.93); ALKALINE PHOSPHATASE 64 U/L (45-117); ALT/SGPT 19 U/L (12-78); ANION GAP 7 MEQ/L (8-16); AST/SGOT 36 U/L (15-37); BILIRUBIN,TOTAL 0.4 MG/DL (0.2-1.0); BLOOD UREA NITROGEN 11 MG/DL (7-18); CALCIUM LEVEL 9.2 MG/DL (8.5-10.1); CARBON DIOXIDE LEVEL 26 MEQ/L (21-32); CHLORIDE LEVEL 108 MEQ/L (98-107); CREATININE FOR GFR 0.76 MG/DL (0.55-1.02); FERRITIN 31 NG/ML (8-252); GLOMERULAR FILTRATION RATE > 60.0 (>60); GLUCOSE, FASTING 90 MG/DL (70-105); PERCENT SATURATION 33.1 % (13.2-37.4); POTASSIUM SERUM 4.3 MEQ/L (3.5-5.1); SODIUM LEVEL 141 MEQ/L (136-145); TOTAL IRON BINDING CAPACITY 275 UG/DL (250-450); TOTAL PROTEIN 6.4 GM/DL (6.4-8.2)
== END ==
LOC: M SFHCPLAZ 09:25
PROVIDERS: ATTEND Physician Assistant
DX: D64.9 Anemia, unspecified (principal); E28.2 Polycystic ovarian syndrome; E55.9 Vitamin D deficiency, unspecified

== ENCOUNTER → 2016-08-24 | Outpatient (REF) | payer OTHER | LOC: M SFHCWAGY 09:09 | PROVIDERS: ATTEND Nurse Practitioner Family | DX: Z12.4 Encounter for screening for malignant neoplasm of cervix (principal); Z11.3 Encounter for screening for infections with a predominantly sexual mode of transmission | CPT/HCPCS: 87491; 87591; G0123 ==

== ENCOUNTER → 2016-08-27 | Outpatient (REF) | payer OTHER | LOC: M SFHCPLAZ 09:35 | PROVIDERS: ATTEND Physician Assistant | DX: R94.6 Abnormal results of thyroid function studies (principal); E55.9 Vitamin D deficiency, unspecified ==

== ENCOUNTER → 2016-09-02 | Outpatient (REF) | payer MEDICAID, OTHER ==
[2016-09-02 15:59] LABS: BASO % 0.2 % (0.0-1.0); EOS # 0.1 K/mm3 (0.0-0.50); EOS % 1.2 % (0.0-3.0); LARGE UNSTAINED CELL # 0.1 K/mm3 (0.0-0.4); LARGE UNSTAINED CELL % 1.4 % (0.0-4.0); LYMPH # 2.9 K/mm3 (1.5-6.5); LYMPH % 28.4 % (24.0-44.0); MEAN CORPUSCULAR HEMOGLOBIN 31.1 pg (27.0-33.0); MEAN CORPUSCULAR VOLUME 91.7 fl (80.0-96.0); MONO # 0.5 K/mm3 (0.0-0.8); MONO % 4.7 % (0.0-5.0); NEUTROPHILS # 6.5 K/mm3 (1.8-7.7); NEUTROPHILS % 64.1 % (36.0-66.0); PLATELET COUNT, AUTOMATED 225 k/mm3 (150-450); RED CELL DISTRIBUTION WIDTH 12.6 % (11.5-14.5); WHITE BLOOD COUNT 10.2 K/mm3 (4.0-10.0)
[2016-09-02 16:21] LABS: ALBUMIN 4.1 GM/DL (3.2-5.2); ALBUMIN/GLOBULIN RATIO 1.32 (1.00-1.93); ALKALINE PHOSPHATASE 63 U/L (45-117); ALT/SGPT 25 U/L (12-78); ANION GAP 8 MEQ/L (8-16); AST/SGOT 16 U/L (15-37); BILIRUBIN,TOTAL 0.3 MG/DL (0.2-1.0); BLOOD UREA NITROGEN 9 MG/DL (7-18); CALCIUM LEVEL 9.1 MG/DL (8.5-10.1); CARBON DIOXIDE LEVEL 27 MEQ/L (21-32); CHLORIDE LEVEL 105 MEQ/L (98-107); CREATININE FOR GFR 0.78 MG/DL (0.55-1.02); FERRITIN 34 NG/ML (8-252); FREE T4 0.93 NG/DL (0.76-1.46); GLOMERULAR FILTRATION RATE > 60.0 (>60); GLUCOSE, FASTING 73 MG/DL (70-105); PERCENT SATURATION 31.2 % (13.2-37.4); POTASSIUM SERUM 4.3 MEQ/L (3.5-5.1); SODIUM LEVEL 140 MEQ/L (136-145); TOTAL IRON BINDING CAPACITY 308 UG/DL (250-450); TOTAL PROTEIN 7.2 GM/DL (6.4-8.2)
[2016-09-03 08:41] LABS: THYROID PEROXIDASE ANTIBODY < 28.0 U/ML (<60.0)
== END ==
LOC: M SFHCPLAZ 14:26
PROVIDERS: ATTEND Family Medicine
DX: D50.9 Iron deficiency anemia, unspecified (principal); E55.9 Vitamin D deficiency, unspecified; E03.9 Hypothyroidism, unspecified; E66.09 Other obesity due to excess calories

== ENCOUNTER → 2016-09-09 | Outpatient (CLI) | payer OTHER ==
--- NOTE | 2016-09-10 03:18 | REP ---
Clinical: Hypothyroidism. Technique: Real time coelho scale and color evaluation using curved array transducer. Findings: The thyroid gland is normal in contour, size, and overall parenchymal echogenicity. Few scattered small cysts in the left lobe are identified along with solitary nodule in the right lobe. Vascularity appears relatively normal. Right lobe measures 3.5 x 1.7 x 1.1 cm and includes a 7 x 3 x 9 mm hypoechoic nodule in the mid pole. Left lobe measures 3.7 x 1.6 x 1.2 cm with a few scattered cysts the largest of which is noted in the lower pole and measures 5 x 5 x 5 mm. Isthmus measures 4 mm in width. Impression: Solitary hypoechoic nonspecific nodule in the right lobe. Few small nonspecific cysts in the left lobe measure up to 5 mm. Signed by Behzad Dietz MD 09/10/2016 03:09 A
== END ==
LOC: M RAD 12:37
PROVIDERS: ATTEND Family Medicine
DX: E03.9 Hypothyroidism, unspecified (principal); E04.1 Nontoxic single thyroid nodule

== ENCOUNTER → 2016-09-09 | Outpatient (REF) | payer OTHER | LOC: M SFHCPLAZ 15:44 | PROVIDERS: ATTEND Physician Assistant | DX: E66.09 Other obesity due to excess calories (principal) ==

== ENCOUNTER → 2016-11-12 | Outpatient (CLI) | payer OTHER, MEDICAID ==
[2016-11-12 12:44] LABS: BASO % 0.2 % (0.0-1.0); EOS # 0.1 K/mm3 (0.0-0.50); LARGE UNSTAINED CELL # 0.1 K/mm3 (0.0-0.4); LARGE UNSTAINED CELL % 0.6 % (0.0-4.0); LYMPH # 2.6 K/mm3 (1.5-6.5); LYMPH % 18.1 % (24.0-44.0); MEAN CORPUSCULAR HGB CONC 33.8 g/dl (32.0-36.5); MEAN CORPUSCULAR VOLUME 91.7 fl (80.0-96.0); MONO # 0.5 K/mm3 (0.0-0.8); MONO % 3.8 % (0.0-5.0); NEUTROPHILS # 10.5 K/mm3 (1.8-7.7); NEUTROPHILS % 76.3 % (36.0-66.0); PLATELET COUNT, AUTOMATED 230 k/mm3 (150-450); RED CELL DISTRIBUTION WIDTH 12.7 % (11.5-14.5); WHITE BLOOD COUNT 13.7 K/mm3 (4.0-10.0)
[2016-11-12 13:32] LABS: ALBUMIN/GLOBULIN RATIO 1.38 (1.00-1.93); ALKALINE PHOSPHATASE 64 U/L (45-117); ALT/SGPT 12 U/L (12-78); ANION GAP 7 MEQ/L (8-16); AST/SGOT 8 U/L (15-37); BILIRUBIN,TOTAL 0.3 MG/DL (0.2-1.0); BLOOD UREA NITROGEN 13 MG/DL (7-18); CALCIUM LEVEL 9.5 MG/DL (8.5-10.1); CARBON DIOXIDE LEVEL 25 MEQ/L (21-32); CHLORIDE LEVEL 111 MEQ/L (98-107); CREATININE FOR GFR 0.79 MG/DL (0.55-1.02); FERRITIN 50 NG/ML (8-252); FREE T4 1.04 NG/DL (0.76-1.46); GLOMERULAR FILTRATION RATE > 60.0 (>60); GLUCOSE, FASTING 86 MG/DL (70-105); PERCENT SATURATION 25.7 % (13.2-45.0); POTASSIUM SERUM 4.4 MEQ/L (3.5-5.1); SODIUM LEVEL 143 MEQ/L (136-145); TOTAL IRON BINDING CAPACITY 265 UG/DL (250-450); TOTAL PROTEIN 6.9 GM/DL (6.4-8.2)
== END ==
LOC: M LAB 12:04
PROVIDERS: ATTEND Family Medicine
DX: D50.9 Iron deficiency anemia, unspecified (principal); E55.9 Vitamin D deficiency, unspecified; E03.9 Hypothyroidism, unspecified

== ENCOUNTER → 2017-01-05 | Outpatient (CLI) | payer OTHER ==
[2017-01-05 09:19] LABS: MEAN CORPUSCULAR HEMOGLOBIN 30.7 pg (27.0-33.0); MEAN CORPUSCULAR HGB CONC 33.5 g/dl (32.0-36.5); MEAN CORPUSCULAR VOLUME 91.6 fl (80.0-96.0); RED CELL DISTRIBUTION WIDTH 13.2 % (11.5-14.5); WHITE BLOOD COUNT 10.1 10^3/uL (4.0-10.0)
[2017-01-05 09:32] LABS: ALBUMIN 3.6 GM/DL (3.2-5.2); ALBUMIN/GLOBULIN RATIO 1.24 (1.00-1.93); ALKALINE PHOSPHATASE 56 U/L (45-117); ALT/SGPT 13 U/L (12-78); ANION GAP 7 MEQ/L (8-16); AST/SGOT 5 U/L (15-37); BILIRUBIN,TOTAL 0.2 MG/DL (0.2-1.0); BLOOD UREA NITROGEN 16 MG/DL (7-18); CALCIUM LEVEL 8.9 MG/DL (8.5-10.1); CARBON DIOXIDE LEVEL 24 MEQ/L (21-32); CHLORIDE LEVEL 112 MEQ/L (98-107); CHOLESTEROL LEVEL 169 MG/DL (<200); FREE T4 0.83 NG/DL (0.76-1.46); GLOMERULAR FILTRATION RATE > 60.0 (>60); GLUCOSE, FASTING 93 MG/DL (70-105); POTASSIUM SERUM 4.4 MEQ/L (3.5-5.1); SODIUM LEVEL 143 MEQ/L (136-145); TOTAL PROTEIN 6.5 GM/DL (6.4-8.2); TRIGLYCERIDES LEVEL 66 MG/DL (<150)
[2017-01-05 09:46] LABS: REASON FOR REVIEW COMPREHENSIVE REVIEW
[2017-01-05 10:02] LABS: ANISOCYTOSIS 1+
== END ==
LOC: M LAB 08:19
PROVIDERS: ATTEND Family Medicine
DX: D72.829 Elevated white blood cell count, unspecified (principal)

== ENCOUNTER → 2017-03-25 | Outpatient (CLI) | payer OTHER ==
--- NOTE | 2017-03-25 12:31 | REP ---
THYROID ULTRASOUND: Real-time sonographic evaluation of the thyroid performed. Both lobes are normal in size, right lobe measuring 4.0 x 1.3 x 1.8 cm and the left lobe 3.9 x 1.5 x 1.4 cm. There are multiple small cystic areas in the left lobe. There is a complex cyst in the left lower pole, 6 x 5 x 5 mm unchanged since the prior exam of 09/09/2016. A solid appearing nodule in the right upper pole is unchanged measuring 10 x 4 x 9 mm. IMPRESSION: Stable exam. Signed by Elias Alves MD 03/25/2017 03:50 P
== END ==
LOC: M RAD 09:56
PROVIDERS: ATTEND Family Medicine
DX: E04.1 Nontoxic single thyroid nodule (principal)

== ENCOUNTER → 2017-05-13 | Outpatient (REF) | payer OTHER, MEDICAID ==
[2017-05-13 12:38] LABS: CONTROL LINE HCG INT CTR LINE PRESENT; HCG, SERUM QUALITATIVE NEGATIVE (NEGATIVE)
== END ==
LOC: M LABDRAW1 11:44
DX: Z01.89 Encounter for other specified special examinations (principal)

== ENCOUNTER → 2017-05-13 | Outpatient (REF) | payer OTHER, MEDICAID ==
[2017-05-13 12:40] LABS: BASO % 0.2 % (0.0-1.0); EOS # 0.2 10^3/uL (0.0-0.50); EOS % 1.7 % (0.0-3.0); IMMATURE GRANULOCYTE % 0.3 % (0-3.0); LYMPH # 2.3 10^3/uL (1.5-6.5); MEAN CORPUSCULAR HEMOGLOBIN 30.6 pg (27.0-33.0); MEAN CORPUSCULAR HGB CONC 34.1 g/dl (32.0-36.5); MEAN CORPUSCULAR VOLUME 89.7 fl (80.0-96.0); MONO # 0.6 10^3/uL (0.0-0.8); MONO % 5.1 % (0.0-5.0); NEUTROPHILS # 8.5 10^3/uL (1.8-7.7); NEUTROPHILS % 72.7 % (36.0-66.0); PLATELET COUNT, AUTOMATED 257 10^3/uL (150-450); RED BLOOD COUNT 4.57 10^6/uL (4.00-5.40); RED CELL DISTRIBUTION WIDTH 13.2 % (11.5-14.5); WHITE BLOOD COUNT 11.6 10^3/uL (4.0-10.0)
[2017-05-13 13:19] LABS: VITAMIN B12 LEVEL 337 PG/ML (247-911)
[2017-05-13 13:25] LABS: ALKALINE PHOSPHATASE 57 U/L (45-117); ALT/SGPT 19 U/L (12-78); ANION GAP 8 MEQ/L (8-16); AST/SGOT 14 U/L (7-37); BILIRUBIN,TOTAL 0.3 MG/DL (0.2-1.0); BLOOD UREA NITROGEN 16 MG/DL (7-18); CALCIUM LEVEL 8.8 MG/DL (8.5-10.1); CARBON DIOXIDE LEVEL 24 MEQ/L (21-32); CHLORIDE LEVEL 110 MEQ/L (98-107); CREATININE FOR GFR 0.95 MG/DL (0.55-1.30); GLOMERULAR FILTRATION RATE > 60.0 (>60); GLUCOSE, FASTING 89 MG/DL (70-100); SODIUM LEVEL 142 MEQ/L (136-145); TOTAL PROTEIN 6.9 GM/DL (6.4-8.2)
[2017-05-13 13:26] LABS: ALBUMIN/GLOBULIN RATIO 1.38 (1.00-1.93); FERRITIN 29 NG/ML (8-252); FREE T4 0.86 NG/DL (0.76-1.46); IRON (FE) 104 UG/DL (50-170); PERCENT SATURATION 39.7 % (13.2-45.0); TOTAL IRON BINDING CAPACITY 262 UG/DL (250-450)
[2017-05-13 14:49] LABS: PRETREATED FOLATE FOR RBCFOL 9.7 NG/ML; RBC FOLATE 496.8 NG/ML (280-791)
[2017-05-14 14:10] LABS: INSULIN LEVEL 12.2 uIU/mL (2.6-24.9)
== END ==
LOC: M LABDRAW1 11:45
DX: D50.9 Iron deficiency anemia, unspecified (principal); E66.09 Other obesity due to excess calories; E03.9 Hypothyroidism, unspecified

== ENCOUNTER 2017-09-30 23:27 | Emergency (ER) | payer OTHER, MEDICAID ==
[2017-09-30 23:34] LABS: BASO % 0.3 % (0.0-1.0); EOS # 0.2 10^3/uL (0.0-0.50); EOS % 1.8 % (0.0-3.0); HEMATOCRIT 40.4 % (36.0-47.0); HEMOGLOBIN 13.9 g/dl (12.0-15.5); IMMATURE GRANULOCYTE % 0.2 % (0-3.0); LYMPH # 4.4 10^3/uL (1.5-6.5); LYMPH % 35.8 % (24.0-44.0); MEAN CORPUSCULAR HEMOGLOBIN 30.1 pg (27.0-33.0); MEAN CORPUSCULAR HGB CONC 34.4 g/dl (32.0-36.5); MEAN CORPUSCULAR VOLUME 87.4 fl (80.0-96.0); MONO # 0.9 10^3/uL (0.0-0.8); MONO % 7.2 % (0.0-5.0); NEUTROPHILS # 6.6 10^3/uL (1.8-7.7); NEUTROPHILS % 54.7 % (36.0-66.0); PLATELET COUNT, AUTOMATED 221 10^3/uL (150-450); RED BLOOD COUNT 4.62 10^6/uL (4.00-5.40); RED CELL DISTRIBUTION WIDTH 12.8 % (11.5-14.5); WHITE BLOOD COUNT 12.1 10^3/uL (4.0-10.0)
[2017-09-30] MEDS: NS 1,000 ML IV (23:36)
[2017-09-30 23:42] LABS: KETONE, URINE AUTO RFX TRACE mg/dL (NEGATIVE); MUCUS, URINE RFX SMALL (NEGATIVE); NITRITE, URINE AUTO RFX NEGATIVE (NEGATIVE); RBC, URINE AUTO RFX 19 /HPF (0-3); SPECIFIC GRAVITY UR AUTO RFX 1.029 (1.002-1.035); SQUAM EPITHELIAL CELL UR AURFX 6 /HPF (0-6); WBC, URINE AUTO RFX 3 /HPF (0-3)
[2017-09-30 23:49] LABS: CONTROL LINE HCG INT CTR LINE PRESENT; HCG, SERUM QUALITATIVE NEGATIVE (NEGATIVE)
[2017-09-30 23:58] LABS: ALBUMIN 3.7 GM/DL (3.2-5.2); ALBUMIN/GLOBULIN RATIO 1.23 (1.00-1.93); ALKALINE PHOSPHATASE 65 U/L (45-117); ALT/SGPT 14 U/L (12-78); AMYLASE 38 U/L (25-115); ANION GAP 8 MEQ/L (8-16); AST/SGOT 8 U/L (7-37); BILIRUBIN,DIRECT < 0.1 MG/DL (0.0-0.2); BILIRUBIN,TOTAL 0.3 MG/DL (0.2-1.0); BLOOD UREA NITROGEN 16 MG/DL (7-18); CALCIUM LEVEL 8.9 MG/DL (8.5-10.1); CARBON DIOXIDE LEVEL 28 MEQ/L (21-32); CHLORIDE LEVEL 111 MEQ/L (98-107); CREATININE FOR GFR 1.38 MG/DL (0.55-1.30); GLOMERULAR FILTRATION RATE 48.8 (>60); GLUCOSE, FASTING 80 MG/DL (70-100); LIPASE 131 U/L (73-393); SODIUM LEVEL 147 MEQ/L (136-145); TOTAL PROTEIN 6.7 GM/DL (6.4-8.2)
[2017-10-01 00:03] LABS: LEUKOCYTE ESTERASE UR AUTO RFX TRACE (NEGATIVE)
[2017-10-01] MEDS ORDERED: ISOVUE-370 76% 100ML VIAL (Q9967) As Ordered (00:05)
== END 2017-10-01 01:15 | disposition home or self-care (01) ==
LOC: M ED 10-01 01:15
DX: E86.0 Dehydration (principal); R10.9 Unspecified abdominal pain; F41.9 Anxiety disorder, unspecified; K25.9 Gastric ulcer, unspecified as acute or chronic, without hemorrhage or perforation; F17.200 Nicotine dependence, unspecified, uncomplicated; Z79.899 Other long term (current) drug therapy
CPT/HCPCS: Q9967

== ENCOUNTER → 2017-11-10 | Outpatient (REF) | payer OTHER ==
[2017-11-10 16:29] LABS: TOTAL 25(OH) VITAMIN D 31.5 NG/ML (30.0-100.0)
[2017-11-10 16:30] LABS: FOLLICLE STIMULATING HORMONE 5.4 mIU/mL; LUTEINIZING HORMONE 7.9 mIU/mL; PTH INTACT 36.7 PG/ML (18.5-88.0); VITAMIN B12 LEVEL 411 PG/ML (247-911)
[2017-11-10 16:31] LABS: ALBUMIN 4.1 GM/DL (3.2-5.2); ALBUMIN/GLOBULIN RATIO 1.32 (1.00-1.93); ALKALINE PHOSPHATASE 59 U/L (45-117); ALT/SGPT 17 U/L (12-78); ANION GAP 9 MEQ/L (8-16); AST/SGOT 8 U/L (7-37); BILIRUBIN,TOTAL 0.3 MG/DL (0.2-1.0); BLOOD UREA NITROGEN 11 MG/DL (7-18); CALCIUM LEVEL 9.1 MG/DL (8.5-10.1); CARBON DIOXIDE LEVEL 25 MEQ/L (21-32); CHLORIDE LEVEL 106 MEQ/L (98-107); CREATININE FOR GFR 0.89 MG/DL (0.55-1.30); FREE T4 0.87 NG/DL (0.76-1.46); GLOMERULAR FILTRATION RATE > 60.0 (>60); GLUCOSE, FASTING 79 MG/DL (70-100); POTASSIUM SERUM 4.8 MEQ/L (3.5-5.1); SODIUM LEVEL 140 MEQ/L (136-145); TOTAL PROTEIN 7.2 GM/DL (6.4-8.2)
[2017-11-10 16:38] LABS: BASO % 0.5 % (0.0-1.0); EOS # 0.1 10^3/uL (0.0-0.50); EOS % 1.3 % (0.0-3.0); ESTIMATED AVERAGE GLUCOSE 100 MG/DL (60-110); HEMATOCRIT 42.4 % (36.0-47.0); HEMOGLOBIN 14.5 g/dl (12.0-15.5); HEMOGLOBIN A1c 5.1 %; IMMATURE GRANULOCYTE % 0.5 % (0-3.0); LYMPH # 3.1 10^3/uL (1.5-6.5); LYMPH % 35.4 % (24.0-44.0); MEAN CORPUSCULAR HEMOGLOBIN 30.5 pg (27.0-33.0); MEAN CORPUSCULAR HGB CONC 34.2 g/dl (32.0-36.5); MEAN CORPUSCULAR VOLUME 89.3 fl (80.0-96.0); MONO # 0.6 10^3/uL (0.0-0.8); MONO % 6.8 % (0.0-5.0); NEUTROPHILS # 4.9 10^3/uL (1.8-7.7); NEUTROPHILS % 55.5 % (36.0-66.0); PLATELET COUNT, AUTOMATED 210 10^3/uL (150-450); RED BLOOD COUNT 4.75 10^6/uL (4.00-5.40); RED CELL DISTRIBUTION WIDTH 13.2 % (11.5-14.5); RETIC HEMOGLOBIN EQUIVALENT 35.5 pg (24-36); RETICULOCYTE # 25.2 10^9/L (17-77); RETICULOCYTE % 0.5 % (0.5-1.5); WHITE BLOOD COUNT 8.8 10^3/uL (4.0-10.0)
[2017-11-12 15:10] LABS: H PYLORI SERUM QUANT IgG ABY 0.43 (0.00-0.79)
[2017-11-12 15:10] LABS: INSULIN LEVEL 7.5 uIU/mL (2.6-24.9); TESTOSTERONE FREE (DIRECT) 1.8 pg/mL (0.0-4.2)
== END ==
LOC: M SFHCPLAZ 13:55
DX: E03.9 Hypothyroidism, unspecified (principal); E55.9 Vitamin D deficiency, unspecified; D50.9 Iron deficiency anemia, unspecified; E88.81 Metabolic syndrome and other insulin resistance; F31.9 Bipolar disorder, unspecified; R10.13 Epigastric pain
CPT/HCPCS: 83001

== ENCOUNTER → 2017-11-16 | Outpatient (REF) | payer OTHER | LOC: M LAB REF 09:27 | DX: Z00.00 Encounter for general adult medical examination without abnormal findings (principal) | CPT/HCPCS: 87507 ==

== ENCOUNTER → 2017-11-17 | Outpatient (CLI) | payer OTHER | LOC: M RAD 08:23 | DX: K76.9 Liver disease, unspecified (principal) | CPT/HCPCS: 76705 ==

== ENCOUNTER → 2017-11-24 | Outpatient (REF) | payer OTHER ==
[2017-11-24 13:38] LABS: BASO % 0.4 % (0.0-1.0); EOS # 0.1 10^3/uL (0.0-0.50); EOS % 0.9 % (0.0-3.0); HEMATOCRIT 43.7 % (36.0-47.0); HEMOGLOBIN 14.4 g/dl (12.0-15.5); IMMATURE GRANULOCYTE % 0.2 % (0-3.0); LYMPH # 2.2 10^3/uL (1.5-6.5); LYMPH % 27.7 % (24.0-44.0); MEAN CORPUSCULAR HEMOGLOBIN 29.5 pg (27.0-33.0); MEAN CORPUSCULAR VOLUME 89.5 fl (80.0-96.0); MONO # 0.6 10^3/uL (0.0-0.8); NEUTROPHILS # 5.1 10^3/uL (1.8-7.7); NEUTROPHILS % 63.8 % (36.0-66.0); PLATELET COUNT, AUTOMATED 219 10^3/uL (150-450); RED BLOOD COUNT 4.88 10^6/uL (4.00-5.40); RED CELL DISTRIBUTION WIDTH 12.9 % (11.5-14.5); WHITE BLOOD COUNT 8.1 10^3/uL (4.0-10.0)
[2017-11-24 14:07] LABS: ALBUMIN 3.8 GM/DL (3.2-5.2); ALBUMIN/GLOBULIN RATIO 1.19 (1.00-1.93); ALKALINE PHOSPHATASE 66 U/L (45-117); ALT/SGPT 14 U/L (12-78); ANION GAP 6 MEQ/L (8-16); AST/SGOT 5 U/L (7-37); BILIRUBIN,TOTAL 0.2 MG/DL (0.2-1.0); BLOOD UREA NITROGEN 13 MG/DL (7-18); CALCIUM LEVEL 8.9 MG/DL (8.5-10.1); CARBON DIOXIDE LEVEL 28 MEQ/L (21-32); CHLORIDE LEVEL 107 MEQ/L (98-107); CREATININE FOR GFR 0.87 MG/DL (0.55-1.30); GLOMERULAR FILTRATION RATE > 60.0 (>60); GLUCOSE, FASTING 83 MG/DL (70-100); POTASSIUM SERUM 4.5 MEQ/L (3.5-5.1); SODIUM LEVEL 141 MEQ/L (136-145)
== END ==
LOC: M SFHCPLAZ 11:33
DX: K27.9 Peptic ulcer, site unspecified, unspecified as acute or chronic, without hemorrhage or perforation (principal)

== ENCOUNTER 2018-03-10 23:02 | Emergency (ER) | payer OTHER ==
[2018-03-10] MEDS ORDERED: HALOPERIDOL 5 MG/ML VIAL (J1630) IV (23:39)
[2018-03-10] MEDS ORDERED: diphenhydrAMINE INJ 50MG/ML VIAL (J1200) IV (23:39)
[2018-03-10] MEDS ORDERED: NS 500 ML IV (23:45)
== END 2018-03-11 00:29 | disposition left against medical advice (07) ==
LOC: M ED 03-11 00:29
DX: G89.29 Other chronic pain (principal); R10.9 Unspecified abdominal pain; R51 Headache; F17.210 Nicotine dependence, cigarettes, uncomplicated
CPT/HCPCS: 96374

== ENCOUNTER → 2018-12-08 | Outpatient (REF) | payer OTHER ==
[~2018-12-08] MED LIST: ABIL30TA4 PO; KLON1TAB PO
[2018-12-08 18:09] LABS: FREE T4 0.79 NG/DL (0.76-1.46); THYROID STIMULATING HORMONE 2.89 uIU/ML (0.358-3.740)
== END ==
LOC: M SFHCPLAZ 15:53
DX: R63.4 Abnormal weight loss (principal)

== ENCOUNTER → 2018-12-19 | Outpatient (CLI) | payer OTHER ==
--- NOTE | 2018-12-20 03:49 | REP ---
Clinical: Thyroid nodule. Comparison: 03/25/2017. Technique: Real time coelho scale and color evaluation using linear high frequency transducer. Findings: Isthmus measures 3.4 mm in width. Right thyroid lobe measures 5.4 x 1.5 x 1.9 cm and includes 13 x 5 x 9 mm stable mid pole isoechoic nodule and new 6 x 3 x 6 mm isoechoic lower pole nodule. Left lobe measures 4.3 x 1.3 x 1.4 cm and includes 3 x 2 x 3 mm stable mid pole complex cyst and 8 x 4 x 7 mm stable lower pole hypoechoic nodule/cyst. Impression: 1. Single new nonspecific isoechoic nodule in the lower pole of the right thyroid lobe noted. 2. Remainder of nodules/cysts are stable when compared with prior examination. Electronically Signed by Behzad Dietz MD 12/20/2018 03:41 A
== END ==
LOC: M RAD 15:18
PROVIDERS: ATTEND Internal Medicine
DX: E04.1 Nontoxic single thyroid nodule (principal)

== ENCOUNTER → 2019-01-05 | Outpatient (REF) | payer OTHER ==
[2019-01-05 19:23] LABS: APPEARANCE, URINE CLEAR (CLEAR); BACTERIA, URINE AUTO 1+ (NEGATIVE); BILIRUBIN, URINE AUTO NEGATIVE (NEGATIVE); BLOOD, URINE BLOOD 1+ (NEGATIVE); COLOR, URINE YELLOW (YELLOW); GLUCOSE, URINE (UA) AUTO NEGATIVE (NEGATIVE); KETONE, URINE AUTO NEGATIVE (NEGATIVE); LEUKOCYTE ESTERASE, URINE AUTO 2+ (NEGATIVE); NITRITE, URINE AUTO NEGATIVE (NEGATIVE); PROTEIN, URINE AUTO NEGATIVE (NEGATIVE); RBC, URINE AUTO 5 /HPF (0-3); SPECIFIC GRAVITY URINE AUTO 1.005 (1.002-1.035); SQUAMOUS EPITHELIAL CELL UR AU 1 /HPF (0-6); UROBILINOGEN, URINE AUTO 0.2 mg/dL (0.0-2.0); WBC, URINE AUTO 2 /HPF (0-3)
== END ==
LOC: M SFHCPLAZ 15:54
DX: R10.32 Left lower quadrant pain (principal)

== ENCOUNTER → 2019-01-06 | Outpatient (CLI) | payer OTHER | LOC: M LAB 08:17 | PROVIDERS: ATTEND Internal Medicine | DX: R10.32 Left lower quadrant pain (principal) ==

== ENCOUNTER → 2019-01-16 | Outpatient (CLI) | payer OTHER ==
--- NOTE | 2019-01-23 18:45 | REP ---
Clinical: Left lower quadrant pain . Technique: Transabdominal pelvic ultrasound with color Doppler evaluation of the ovaries. Findings: Bladder is unremarkable and measures 7.5 x 2.0 x 4.0 cm . Normal anteverted uterus measures 6.5 x 3.4 x 4.8 cm . The endometrial complex measures 7.0 mm thickness. No discrete uterine or endometrial abnormalities are appreciated. Bilateral ovaries are normal in appearance and vascularity without evidence for torsion. Right ovary measures 4.5 x 2.9 x 2.2 cm with 2.2 x 2.5 x 1.6 cm dominant follicle ; R I = 0.70 . Left ovary measures 3.7 x 1.7 x 1.7 cm ; R I = 0.78 . No pelvic fluid or adnexal mass lesion . Impression: 1. 2.5 cm physiologic cyst / dominant follicle in the right ovary. Electronically Signed by Behzad Dietz MD 01/23/2019 06:36 P
--- NOTE | 2019-01-23 18:50 | REP ---
Clinical: History of hemangioma. Comparison: 11/17/2017 Technique: Real time coelho scale and color ultrasound examination using curved array transducer. Findings: Liver is essentially normal in contour, size, and parenchymal echo texture. Echogenic solid lesion adjacent to the gallbladder measures 1.7 x 1.4 x 1.0 cm and may represent hemangioma. Lesion remains stable when compared to prior examination. No further hepatic lesions identified. Pancreas is unremarkable. The gallbladder is normal and without gallstones, wall thickening, or pericholecystic fluid. No biliary ductal dilatation is appreciated and the common bile duct measures 2.5 mm diameter. The right kidney is normal in reniform shape without hydronephrosis and measures 10.6 x 4.8 x 4.2 cm. No ascites. Impression: 1.7 cm stable echogenic lesion within the left lobe of the liver is nonspecific but may represent hemangioma. Electronically Signed by Behzad Dietz MD 01/23/2019 06:42 P
== END ==
LOC: M RAD 06:27
PROVIDERS: ATTEND Internal Medicine
DX: N83.291 Other ovarian cyst, right side (principal); R10.32 Left lower quadrant pain; D18.03 Hemangioma of intra-abdominal structures

== ENCOUNTER → 2019-04-13 | Outpatient (REF) | payer OTHER ==
[2019-04-13 18:57] LABS: AMORPHOUS SEDIMENT SMALL (NEGATIVE); APPEARANCE, URINE HAZY (CLEAR); BACTERIA, URINE AUTO 1+ (NEGATIVE); BILIRUBIN, URINE AUTO NEGATIVE (NEGATIVE); BLOOD, URINE BLOOD 3+ (NEGATIVE); COLOR, URINE YELLOW (YELLOW); GLUCOSE, URINE (UA) AUTO NEGATIVE (NEGATIVE); KETONE, URINE AUTO 1+ mg/dL (NEGATIVE); LEUKOCYTE ESTERASE, URINE AUTO NEGATIVE (NEGATIVE); MUCUS, URINE SMALL (NEGATIVE); NITRITE, URINE AUTO NEGATIVE (NEGATIVE); PROTEIN, URINE AUTO 1+ mg/dL (NEGATIVE); RBC, URINE AUTO 74 /HPF (0-3); SPECIFIC GRAVITY URINE AUTO 1.024 (1.002-1.035); SQUAMOUS EPITHELIAL CELL UR AU 2 /HPF (0-6); UROBILINOGEN, URINE AUTO 0.2 mg/dL (0.0-2.0); WBC, URINE AUTO 3 /HPF (0-3)
[2019-04-13 20:21] LABS: CHLAMYDIA DNA AMPLIFICATION NEGATIVE (NEGATIVE); GC DNA AMPLIFICATION NEGATIVE (NEGATIVE)
== END ==
LOC: M SFHCPLAZ 15:46
PROVIDERS: ATTEND Internal Medicine
DX: Z12.4 Encounter for screening for malignant neoplasm of cervix (principal)

== ENCOUNTER → 2019-04-20 | Outpatient (CLI) | payer OTHER ==
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
== END ==
LOC: M PAIN 11:00
PROVIDERS: ATTEND Nurse Practitioner Family
DX: M25.531 Pain in right wrist (principal); G43.909 Migraine, unspecified, not intractable, without status migrainosus; Z86.59 Personal history of other mental and behavioral disorders; Z87.891 Personal history of nicotine dependence; Z88.1 Allergy status to other antibiotic agents; Z91.09 Other allergy status, other than to drugs and biological substances; Z79.899 Other long term (current) drug therapy

== ENCOUNTER → 2019-05-08 | Outpatient (CLI) | payer OTHER ==
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
== END ==
LOC: M PAIN 14:30
PROVIDERS: ATTEND Anesthesiology
DX: M79.2 Neuralgia and neuritis, unspecified (principal); D36.10 Benign neoplasm of peripheral nerves and autonomic nervous system, unspecified; Z86.59 Personal history of other mental and behavioral disorders; Z87.891 Personal history of nicotine dependence; Z88.2 Allergy status to sulfonamides; Z91.09 Other allergy status, other than to drugs and biological substances; Z79.899 Other long term (current) drug therapy

== ENCOUNTER → 2019-05-09 | Outpatient (CLI) | payer OTHER ==
[~2019-05-09] MED LIST changes: +GASTROGRAFIN SOLUTION 30ML (Q9963) As Ordered ONE; +ISOVUE-370 76% 100ML VIAL (Q9967) As Ordered ONE
--- NOTE | 2019-05-10 16:30 | REP ---
Clinical: Abnormal urinalysis. Technique: Axial contrast enhanced images from the lung bases to the pubic symphysis using oral (per protocol) and 100 ml Isovue 370 intravenous contrast material with coronal and sagittal re-formations. Precontrast images of the abdomen were obtained. Findings: The liver demonstrates small hyperdense area adjacent to the gallbladder fossa in the anterior right lobe similar to prior examination and likely representing hemangioma. The spleen, pancreas, gallbladder, bilateral adrenal glands and kidneys are normal. Specifically, no perinephric stranding, hydroureteronephrosis, intrarenal or obstructing ureteral calculi identified. No significant renal cystic abnormality or mass lesion noted. The enteric system is without obstruction or acute inflammatory process. Few scattered sigmoid diverticula noted without acute diverticulitis. Pelvis demonstrates normal bladder and age-appropriate uterus/adnexa. No ascites. No free air. No adenopathy. Abdominal aorta without aneurysm or dissection. Musculoskeletal structures are intact. Impression: 1. No acute abdominopelvic pathology appreciated. 2. Normal appearance to the kidneys, ureters and bladder by current examination. 3. Stable 2 cm hyperdense lesion in the liver likely representing hemangioma. Electronically Signed by Behzad Dietz MD 05/10/2019 04:21 P
== END ==
LOC: M RAD 12:24
PROVIDERS: ATTEND Internal Medicine
DX: R82.90 Unspecified abnormal findings in urine (principal)
CPT/HCPCS: 74178; Q9963; Q9967

== ENCOUNTER → 2019-06-05 | Outpatient (CLI) | payer OTHER ==
[~2019-06-05] MED LIST changes: -GASTROGRAFIN SOLUTION 30ML (Q9963) As Ordered ONE; -ISOVUE-370 76% 100ML VIAL (Q9967) As Ordered ONE
== END ==
LOC: M PAIN 11:15
PROVIDERS: ATTEND Nurse Practitioner Family
DX: Z53.20 Procedure and treatment not carried out because of patient's decision for unspecified reasons (principal)

== ENCOUNTER → 2019-06-11 | Outpatient (CLI) | payer OTHER ==
[~2019-06-11] MED LIST changes: +BUPIVACAINE HCL 0.25% 30 ML VIAL As Ordered ONE; +TRIAMCINOLONE ACETONIDE SUSP 40 MG/ML VIAL (J3301) As Ordered ONE; +diazePAM 5 MG TAB As Ordered ONE; +oxyCODONE 5MG TAB As Ordered ONE
--- NOTE | 2019-06-15 02:19 | ECWPNPC ---
PATIENT NAME: PABLO DUBOIS : 1990 GENDER: FEMALE VISIT DATE: 06/11/2019 DISCHARGE DATE: 06/11/19 1419 VISIT LOCKED DATE TIME: PHYSICIAN: MELVIN LARA MD RESOURCE: MELVIN LARA MD REASON FOR APPOINTMENT 1. SCAR NEUROMA STEROID INJECTION OF RIGHT WRIST HISTORY OF PRESENT ILLNESS HISTORY OF PRESENT ILLNESS: PAIN THE PATIENT DESCRIBES THE PAIN... FALL RISK SCREENING: SCREENING :NO FALLS REPORTED IN THE LAST YEAR CURRENT MEDICATIONS TAKING SUPER B COMPLEX DAILY TAKING IRON 325 (65 FE) MG TABLET 1 TABLET ORALLY EVERY OTHER DAY TAKING MAGNESIUM 200 MG TABLET 1 TABLETS WITH A MEAL ORALLY EVERY OTHER DAY TAKING BIOTIN 5000 MCG CAPSULE 2 CAPSULE ORALLY ONCE A DAY TAKING POTASSIUM 1 TAB ORAL DAILY TAKING GABAPENTIN 100 MG CAPSULE 1 CAPSULE ORALLY BID TAKING CHROMIUM 200 MCG CAPSULE 1 CAPSULE ORALLY ONCE A DAY, NOTES: NOT SURE OF DOSE NOT-TAKING KEFLEX 500 MG CAPSULE 1 CAPSULE ORALLY EVERY 12 HRS NOT-TAKING DIFLUCAN 150 MG TABLET 1 TABLET ORALLY ONCE DAILY MEDICATION LIST REVIEWED AND RECONCILED WITH THE PATIENT PAST MEDICAL HISTORY OBESITY H/O PCOS (H/O AUB)-DX AT AGE 14Y-BUT NO CONFIRMATORY US NORMAL BW-10/2005 NORMAL PELVIC US NICOTINE USE ORDER-1 PPD SINCE 15Y WORK RELATED HAND ARM INJURY RIGHT 12/2015 OCULAR MIGRAINE-08/[address] FRANKS PER PATIENT R WRIST OA/R THUMB TRIGGER S/P 10/20/16 A1 JUAN RELEASE/WRIST ARTHROGRAM BIPOLAR DISORDER/BORDERLINE PD B THYROID NODULES ALLERGIES SULFANILAMIDE: RASH - ALLERGY CHLORINE: RASH - ALLERGY SURGICAL HISTORY A1 JUAN RELEASE/WRIST ARTHROGRAM-TIERRA 10/20/16 RIGHT WRIST TENDON REPLACEMENT 06/08/2017 RIGHT WRIST ARTHROSCOPY X2 08/2018 FAMILY HISTORY FATHER: ALIVE 57 YRS, HX UNKNOWN, HEART PROBLEMS, ALCOHOLISM MOTHER: ALIVE, HX SPINA BIFIDA, SCOLIOSIS, TOBACCO USE BIPOLAR DIORDER SIBLINGS: SCOLIOSIS MATERNAL GRAND MOTHER: , COMPLICATIONS OF A FALL ,LUNG COLLAPSED 1 SISTER(S) - HEALTHY. FATHER - GASTROINTESTINAL PROBLEMSMOTHER - DIABETES, COPDDENIES FAMILY HX OF BREAST, COLON OR OVARIAN CANCER. SOCIAL HISTORY GENERAL: TOBACCO USE ARE YOU A:FORMER SMOKER HOW LONG HAS IT BEEN SINCE YOU LAST SMOKED?1-3 MONTHS SMOKING CESSATION INFORMATION GIVEN06/04/2019 HIV / HEP-C SCREENING HIV TEST OFFERED TO PATIENT:YES DATE OFFERED:05/18/2016 TEST ACCEPTED:NO HEP-C TEST OFFERED TO PATIENT:NO REASON:PATIENT DECLINED OTHERS AT HOME: OTHER NON-RELATIVE. HOUSING: HOUSE. EDUCATION LEVEL OF EDUCATION:NOT FINISHED COLLEGE DIET: REGULAR. LANGUAGE LANGUAGES SPOKEN:[place] DOMESTIC VIOLENCE DENIES. BMI CARE GOAL FOLLOW-UP ABOVE NORMAL BMI FOLLOW-UPGIVING ENCOURAGEMENT TO EXERCISE RECREATIONAL DRUG USE DRUG USE?NO EXERCISE: WALKS. 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?NO PAIN CLINIC PFS, CLERGY, PUBLIC HEALTH REFERRALS HAS THE PATIENT BEEN EDUCATED REGARDING HIS/HER PLAN OF CARE?YES HAS THE PATIENT BEEN EDUCATED REGARDING PAIN, THE RISK FOR PAIN, THE IMPORTANCE OF EFFECTIVE PAIN MANAGEMENT, AND THE PAIN ASSESSMENT PROCESS?YES LATEX QUESTIONNAIRE LATEX ALLERGY : HAVE YOU EVER DEVELOPED ANY TYPE OF REACTION AFTER HANDLING LATEX PRODUCTS SUCH RUBBER GLOVES, CONDOMS, DIAPHRAGMS, BALLOONS, SOCKS, OR UNDERWEAR?NO LATEX ALLERGY : HAVE YOU EVER DEVELOPED ANY TYPE OF REACTION DURING OR AFTER DENTAL APPOINTMENT, VAGINAL/RECTAL EXAMINATION, SURGICAL PROCEDURE, OR ANY OTHER EXPOSURE?NO DATE ASKED : 04/20/2019 LATEX RISK : HAVE YOU EVER HAD ANY DIFFICULTY BREATHING OR HIVES AFTER EATING OR HANDLING ANY FRUITS, OR VEGETABLES; SUCH KIWI, BANANAS, STONE FRUITS, OR CHESTNUTSNO LATEX RISK : DO YOU HAVE A PREVIOUS PERSONAL HISTORY OF MORE THAN NINE SURGERIES, SPINA BIFIDA, OR REPEATED CATHERIZATIONS? NO LATEX RISK : ARE YOU FREQUENTLY EXPOSED TO LATEX PRODUCTS IN YOUR OCCUPATION?NO CAFFEINE CAFFEINE USE?YES HOW OFTEN AND HOW MUCH? 2/DAY ADVANCE DIRECTIVE ADVANCE DIRECTIVE DISCUSSED WITH PATIENT:YES PATIENT HAS NO ADVANCED DIRECTIVES AND DECLINES INFORMATION ON HCP AT THIS TIME. BAPTISM [id number] MUSLIM MARITAL STATUS: SINGLE. ALCOHOL SCREENING DID YOU HAVE A DRINK CONTAINING ALCOHOL IN THE PAST YEAR?YES HOW OFTEN DID YOU HAVE SIX OR MORE DRINKS ON ONE OCCASION IN THE PAST YEAR?NEVER (0 POINTS) HOW MANY DRINKS DID YOU HAVE ON A TYPICAL DAY WHEN YOU WERE DRINKING IN THE PAST YEAR?1 OR 2 (0 POINTS) HOW OFTEN DID YOU HAVE A DRINK CONTAINING ALCOHOL IN THE PAST YEAR?MONTHLY OR LESS (1 POINT) POINTS1 INTERPRETATIONNEGATIVE OCCUPATION: UNEMPLOYED SINCE WORK INJURY. SEXUAL HX HAD SEX IN THE LAST 12 MONTHS (VAGINAL, ORAL, OR ANAL)?YES WITHMEN ONLY PREVENTION STRATEGIES DISCUSSED:OTHER USE PROTECTION?NO LMP:05/31/2016 HAVE YOU EVER HAD AN STD?NO REVIEWED WITH PATIENT 04/20/2019 1132 JSPRE-SCREENING CALL DONE 06/04/19 EM. 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 CONSTITUTIONAL: ANY CHANGE IN YOUR MEDICAL CONDITION? NO . CHILLS NO . FEVER NO . INFECTION: DO YOU HAVE NEW INFECTIONS? NO . DO YOU HAVE HISTORY OF MRSA? NO . MUSCULOSKELETAL: ANY NEW PATTERNS OF PAIN OR NUMBNESS? NO . GASTROENTEROLOGY: ANY NEW CHANGE IN BOWEL CONTROL? NO . GENITOURINARY: ANY NEW CHANGE IN BLADDER CONTROL? NO . IS THERE A CHANCE YOU COULD BE ? NO . HEMATOLOGY/LYMPH: DO YOU TAKE ANY BLOOD THINNERS? (FOR EXAMPLE- COUMADIN, PLAVIX, AGGRENOX, PLATEL, PRADAXA, OR XARELTO) NO . WHEN WAS YOUR LAST DOSE? DATE: TIME: . NEUROLOGY: HAVE YOU FALLEN IN THE PAST 12 MONTHS? NO . ANY NEW EXTREMITY NUMBNESS OR WEAKNESS? NO . CARDIOLOGY: DO YOU HAVE A PACEMAKER OR DEFIBRILLATOR? NO . RESPIRATORY: HAVE YOU BEEN SICK IN THE PAST WEEK? NO . FEVER NO . FLU LIKE SYMPTOMS? NO . COUGH NO . INTEGUMENTARY: DO YOU HAVE ANY RASHES OR OPEN SORES? NO . ALLERGIC/IMMUNO: ARE YOU ALLERGIC TO IV DYE? NO . ANY NEW ALLERGIES? NO . PSYCHIATRIC: DO YOU HAVE THOUGHTS OF HURTING YOURSELF OR SOMEONE ELSE? NO . ARE YOU ABUSED, NEGLECTED, OR IN AN UNSAFE ENVIRONMENT? NO . ENDOCRINOLOGY: ARE YOU DIABETIC? NO . OTHER: DO YOU NEED ANY PRESCRIPTIONS? NO . IF YES, PLEASE LIST: ____ . ANY NEW PROBLEMS WITH YOUR MEDICATIONS? NO . WHEN DID YOU LAST EAT? ____ . WHEN DID YOU LAST DRINK? ____ . WHAT DID YOU LAST DRINK? ____ . NAME OF PERSON DRIVING YOU HOME? ____ . DO YOU HAVE ANY OTHER QUESTIONS OR CONCERNS NO . VITAL SIGNS WT 230.8 LBS, HT 66 IN, BMI 37.25 INDEX, BP 119/70 MM HG, HR 60 /MIN, RR 18 /MIN, TEMP 98.5 F, OXYGEN SAT % 98%, SAFE IN ENV? (Y/N) YES, NA INITIALS MS 1148, REVIEWED BY: KG. GRANADO SCAR NEUROMA - D36.10 (PRIMARY) PROCEDURES PN WORKMANS' COMP OPINION IN YOUR OPINION, WAS THE INCIDENT THAT THE PATIENT DESCRIBED THE COMPETENT MEDICAL CAUSE OF THIS INJURY/ILLNESS? YES ARE THE PATIENT'S COMPLAINTS CONSISTENT WITH HIS/HER HISTORY OF THE INJURY/ILLNESS? YES IS THE PATIENT'S HISTORY OF THE INJURY/ILLNESS CONSISTENT WITH YOUR OBJECTIVE FINDING? YES WHAT IS THE PERCENTAGE OF TEMPORARY IMPAIRMENT? MARKED = 75% IS THE PATIENT WORKING? 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 SHE HAS A HISTORY OF RIGHT HAND PAIN AFTER A WORK RELATED INJURY. SHE HAS TRIED MULTIPLE INTERVENTIONS INCLUDING THREE WRIST SURGERIES AND YEARS OF PHYSICAL THERAPY, BUT THE PAIN PERSISTS. PRESENTLY SHE CANNOT PERFORM NORMAL, REPETITIVE ACTIVITIES SUCH BRUSHING HER HAIR AND WRITING. I WENT THOUGHT THE RISK ALTERNATIVES AND BENEFITS ASSOCIATED WITH THIS PROCEDURE AND THE PATIENT EXPRESSED SHE WANTS TO MOVE FORWARD. PROCEDURE NOTE: AFTER CONSENT WAS REVIEWED WITH THE PATIENT SHE WAS BROUGHT TO THE PROCEDURE ROOM AND PLACED IN THE SITTING POSITION. THE RIGHT WRIST AREA IS CLEANED WITH ALCOHOL SOLUTION. USING A 30GAUGE NEEDLE I INJECTED THE RIGHT WRIST AREA WITH 20 CC OF BUPIVACAINE 0.125% AND KENALOG 10MG AT THE SCAR AREA. THERE WAS NO EVIDENCE OF BLOOD, PARESTHESIA OR ANY COMPLICATION DURING THE PROCEDURE. POST-PROCEDURE NOTE: I DISCUSSED ALTERNATIVES WITH THE PATIENT. I AM LOOKING FOR LONG LASTING PAIN RELIEF WITH THIS INTERVENTION. THE PATIENT REPORTS UNDERSTANDING AND AGREES. THE PATIENT WILL FOLLOW UP IN SEVERAL WEEKS TO SEE HOW THIS INJECTION IS HELPING WITH HER PAIN. INSTRUCTIONS WERE GIVEN, QUESTIONS WERE ANSWERED AND THE PATIENT REPORTS UNDERSTANDING. I, HERLINDA ONEILL, DOCUMENTED THE ABOVE INFORMATION ACTING A SCRIBE FOR DR. LARA. I HAVE REVIEWED THE ABOVE DOCUMENT, WRITTEN BY HERLINDA KAY AND I VERIFY THAT IT IS ACCURATE. PROCEDURE CODES 10795 INJECTION INTO SKIN LESIONS DISPOSITION & COMMUNICATION FOLLOW UP 3 WEEKS ELECTRONICALLY SIGNED BY MELVIN LARA MD, MD ON 06/14/2019 AT 12:08 PM EDT DISCLAIMER : THIS IS A VISIT SUMMARY EXTRACTED FROM THE [employer] CHART. IT IS NOT A COPY OF THE [employer] PROGRESS NOTE. KYRA
== END ==
LOC: M PAIN 11:15
PROVIDERS: ATTEND Anesthesiology
DX: D36.10 Benign neoplasm of peripheral nerves and autonomic nervous system, unspecified (principal)
CPT/HCPCS: 11900; J3301

== ENCOUNTER → 2020-02-20 | Outpatient (CLI) | payer OTHER ==
[~2020-02-20] MED LIST changes: -BUPIVACAINE HCL 0.25% 30 ML VIAL As Ordered ONE; -TRIAMCINOLONE ACETONIDE SUSP 40 MG/ML VIAL (J3301) As Ordered ONE; -diazePAM 5 MG TAB As Ordered ONE; -oxyCODONE 5MG TAB As Ordered ONE
[2020-02-20 06:34] LABS: HEMATOCRIT 38.2 % (36.0-47.0); MEAN CORPUSCULAR HEMOGLOBIN 29.2 pg (27.0-33.0); MEAN CORPUSCULAR HGB CONC 31.4 g/dl (32.0-36.5); MEAN CORPUSCULAR VOLUME 92.9 fl (80.0-96.0); PLATELET COUNT, AUTOMATED 251 10^3/uL (150-450); RED BLOOD COUNT 4.11 10^6/uL (4.00-5.40); WHITE BLOOD COUNT 13.9 10^3/uL (4.0-10.0)
[2020-02-20 07:09] LABS: ALBUMIN 3.8 GM/DL (3.2-5.2); ALT/SGPT 30 U/L (12-78); BILIRUBIN,TOTAL 0.3 MG/DL (0.2-1.0); BLOOD UREA NITROGEN 22 MG/DL (7-18); CALCIUM LEVEL 9.1 MG/DL (8.5-10.1); CARBON DIOXIDE LEVEL 28 MEQ/L (21-32); CHLORIDE LEVEL 105 MEQ/L (98-107); CREATININE FOR GFR 0.96 MG/DL (0.55-1.30); FREE T4 0.89 NG/DL (0.76-1.46); GLOMERULAR FILTRATION RATE > 60.0 (>60); GLUCOSE, FASTING 74 MG/DL (70-100); SODIUM LEVEL 139 MEQ/L (136-145); TOTAL PROTEIN 6.9 GM/DL (6.4-8.2)
== END ==
LOC: M LAB 06:07
PROVIDERS: ATTEND Student in an Organized Health Care Education/Training Program
DX: K27.9 Peptic ulcer, site unspecified, unspecified as acute or chronic, without hemorrhage or perforation (principal); N93.9 Abnormal uterine and vaginal bleeding, unspecified; Z72.0 Tobacco use; E04.1 Nontoxic single thyroid nodule; R10.30 Lower abdominal pain, unspecified

== ENCOUNTER → 2020-03-21 | Outpatient (CLI) | payer SELFPAY | LOC: M LABSMTC 09:34 | PROVIDERS: ATTEND Pediatrics | DX: Z20.828 Contact with and (suspected) exposure to other viral communicable diseases (principal) ==

== ENCOUNTER → 2020-11-15 | Outpatient (REF) | LOC: M LABSMTC 09:46 | PROVIDERS: ATTEND Family Medicine | DX: Z11.52 Encounter for screening for COVID-19 (principal) ==

== ENCOUNTER → 2020-11-25 | Outpatient (CLI) | payer OTHER ==
--- NOTE | 2020-11-25 08:49 | REP ---
INDICATION: LT THYROID MASS/HTN- US FIRST COMPARISON: 07/09/2011 TECHNIQUE: PA and lateral. FINDINGS: The mediastinum and cardiac silhouette are normal. The lung nieto are clear and without acute consolidation, effusion, or pneumothorax. The skeletal structures are intact and normal. IMPRESSION: No acute cardiopulmonary process. <Electronically signed by Behzad Dietz > 11/25/20 0860
--- NOTE | 2020-11-25 09:46 | REP ---
INDICATION: LT THYROID MASS/HTN- LABS AND EKG FIRST COMPARISON: 03/25/2017 TECHNIQUE: Alves scale and color evaluation of the thyroid gland using the linear high frequency transducer. FINDINGS: Right thyroid lobe measures 5.8 x 1.6 x 1.3 cm and includes 4.0 x 4.2 x 6.8 mm new hypoechoic lower pole nodule along with vague 10.3 x 5.1 x 4.3 mm stable low-density area along the anterior midpole. Left thyroid lobe measures 4.5 x 1.7 x 1.4 cm and includes 5.0 x 2.1 x 2.0 mm and 3.6 x 2.3 x 3.0 mm hypoechoic anterior relatively new nodules and 10.3 x 6.5 x 5.9 mm hypoechoic enlarged posterior lower pole nodule (previously measuring 6 x 5 x 5 mm). Isthmus measures 4.7 mm in width. IMPRESSION: Nonspecific new and minimally enlarged hypoechoic nodules noted bilaterally. No nodule definitively fits criteria for biopsy/aspiration although correlation and follow-up may be warranted. <Electronically signed by Behzad Dietz > 11/25/20 0943
[2020-11-25 10:07] LABS: HEMATOCRIT 42.8 % (36.0-47.0); HEMOGLOBIN 14.2 g/dl (12.0-15.5); MEAN CORPUSCULAR HEMOGLOBIN 29.7 pg (27.0-33.0); MEAN CORPUSCULAR HGB CONC 33.2 g/dl (32.0-36.5); MEAN CORPUSCULAR VOLUME 89.5 fl (80.0-96.0); PLATELET COUNT, AUTOMATED 259 10^3/uL (150-450); RED BLOOD COUNT 4.78 10^6/uL (4.00-5.40); WHITE BLOOD COUNT 14.4 10^3/uL (4.0-10.0)
[2020-11-25 10:55] LABS: ALBUMIN 3.5 GM/DL (3.2-5.2); ALT/SGPT 19 U/L (12-78); BILIRUBIN,TOTAL 0.3 MG/DL (0.2-1.0); BLOOD UREA NITROGEN 16 MG/DL (7-18); CALCIUM LEVEL 8.5 MG/DL (8.5-10.1); CARBON DIOXIDE LEVEL 24 MEQ/L (21-32); CHLORIDE LEVEL 108 MEQ/L (98-107); CHOLESTEROL LEVEL 181 MG/DL (<200); CHOLESTEROL RISK RATIO 5.323 (<5); CREATININE FOR GFR 0.82 MG/DL (0.55-1.30); GLOMERULAR FILTRATION RATE > 60.0 (>60); GLUCOSE, FASTING 84 MG/DL (70-100); HDL CHOLESTEROL 34 MG/DL (>40); LDL CHOLESTEROL 127 MG/DL (<100); NON-HDL-C 147 MG/DL; POTASSIUM SERUM 4.5 MEQ/L (3.5-5.1); SODIUM LEVEL 137 MEQ/L (136-145); THYROXINE (T4) 8.1 UG/DL (4.5-12.0); TOTAL PROTEIN 6.9 GM/DL (6.4-8.2); TRIGLYCERIDES LEVEL 100 MG/DL (<150)
[2020-11-25 11:59] LABS: TOTAL 25(OH) VITAMIN D 25.3 NG/ML (30.0-100.0); TOTAL T3 102.6 NG/DL (60.0-181.0)
[2020-11-25 15:24] LABS: HEMOGLOBIN A1c 5.2 %
--- NOTE | 2020-11-25 20:00 | ECGEPIP ---
[facility] Test Date: 2020-11-25 Pat Name: PABLO DUBOIS Department: Room: - Gender: Female Regional [employer] Manager: robert : 1990 Requested By: Angie Hernandez Order Number: [id number] Reading MD: Kirt Ojeda Measurements Intervals [place] Rate: 58 P: 65 [place]: 174 QRS: 43 QRSD: 118 T: 9 QT: 410 QTc: 402 Interpretive Statements Sinus bradycardia with sinus arrhythmia Nonspecific intraventricular conduction delay Comparison tracing not on file Electronically Signed on 11-25-2020 19:59:39 EDT by Kirt Ojeda
== END ==
LOC: M RAD 08:09
PROVIDERS: ATTEND Family Medicine
DX: E04.1 Nontoxic single thyroid nodule (principal)

== ENCOUNTER → 2021-01-19 | Outpatient (REF) ==
[2021-01-19 17:04] LABS: RSV AMPLIFICATION NEGATIVE (NEGATIVE)
== END ==
LOC: M EMP 10:08
PROVIDERS: ATTEND Family Medicine
DX: Z11.52 Encounter for screening for COVID-19 (principal)

== ENCOUNTER → 2021-02-21 | Outpatient (REF) ==
[2021-02-21 13:08] LABS: RSV AMPLIFICATION NEGATIVE (NEGATIVE)
== END ==
LOC: M EMP 11:14
PROVIDERS: ATTEND Family Medicine
DX: Z11.52 Encounter for screening for COVID-19 (principal)

== ENCOUNTER → 2021-04-29 | Outpatient (REF) | LOC: M LABSMTC 09:46 | PROVIDERS: ATTEND Pediatrics | DX: Z11.52 Encounter for screening for COVID-19 (principal) ==

== ENCOUNTER → 2021-06-28 | Outpatient (CLI) | payer OTHER ==
[2021-06-28 10:07] LABS: HEMATOCRIT 43.1 % (36.0-47.0); HEMOGLOBIN 14.6 g/dl (12.0-15.5); MEAN CORPUSCULAR HEMOGLOBIN 29.6 pg (27.0-33.0); MEAN CORPUSCULAR HGB CONC 33.9 g/dl (32.0-36.5); MEAN CORPUSCULAR VOLUME 87.2 fl (80.0-96.0); PLATELET COUNT, AUTOMATED 282 10^3/uL (150-450); RED BLOOD COUNT 4.94 10^6/uL (4.00-5.40); WHITE BLOOD COUNT 14.7 10^3/uL (4.0-10.0)
[2021-06-28 10:31] LABS: HEMOGLOBIN A1c 5.3 %
[2021-06-28 10:48] LABS: ALT/SGPT 35 U/L (12-78); BILIRUBIN,TOTAL 0.4 MG/DL (0.2-1.0); BLOOD UREA NITROGEN 21 MG/DL (7-18); CALCIUM LEVEL 9.5 MG/DL (8.5-10.1); CARBON DIOXIDE LEVEL 31 MEQ/L (21-32); CHLORIDE LEVEL 105 MEQ/L (98-107); CHOLESTEROL LEVEL 202 MG/DL (<200); CREATININE FOR GFR 0.85 MG/DL (0.55-1.30); GLOMERULAR FILTRATION RATE > 60.0 (>60); GLUCOSE, FASTING 90 MG/DL (70-100); HDL CHOLESTEROL 44 MG/DL (>40); LDL CHOLESTEROL 136 MG/DL (<100); NON-HDL-C 158 MG/DL; POTASSIUM SERUM 3.8 MEQ/L (3.5-5.1); SODIUM LEVEL 141 MEQ/L (136-145); THYROID STIMULATING HORMONE 0.008 uIU/ML (0.358-3.740); TOTAL PROTEIN 7.3 GM/DL (6.4-8.2); TRIGLYCERIDES LEVEL 111 MG/DL (<150)
[2021-06-29 08:06] LABS: TOTAL 25(OH) VITAMIN D 60.3 NG/ML (30.0-100.0)
== END ==
LOC: M LAB 09:34
PROVIDERS: ATTEND Family Medicine
DX: I10 Essential (primary) hypertension (principal); R53.83 Other fatigue; E03.9 Hypothyroidism, unspecified

== ENCOUNTER → 2021-08-28 | Outpatient (REF) | payer OTHER | LOC: M LAB REF 05:43 | PROVIDERS: ATTEND Family Medicine | DX: B00.9 Herpesviral infection, unspecified (principal) ==

== ENCOUNTER → 2021-09-01 | Outpatient (CLI) | payer OTHER ==
[2021-09-01 13:08] LABS: HEMATOCRIT 41.6 % (36.0-47.0); HEMOGLOBIN 13.6 g/dl (12.0-15.5); MEAN CORPUSCULAR HGB CONC 32.7 g/dl (32.0-36.5); MEAN CORPUSCULAR VOLUME 88.7 fl (80.0-96.0); PLATELET COUNT, AUTOMATED 252 10^3/uL (150-450); RED BLOOD COUNT 4.69 10^6/uL (4.00-5.40); WHITE BLOOD COUNT 15.4 10^3/uL (4.0-10.0)
[2021-09-01 13:27] LABS: ALBUMIN 3.5 GM/DL (3.2-5.2); ALT/SGPT 16 U/L (12-78); AMYLASE 37 U/L (25-115); BILIRUBIN,TOTAL 0.3 MG/DL (0.2-1.0); BLOOD UREA NITROGEN 18 MG/DL (7-18); CALCIUM LEVEL 9.2 MG/DL (8.5-10.1); CARBON DIOXIDE LEVEL 27 MEQ/L (21-32); CHLORIDE LEVEL 106 MEQ/L (98-107); CHOLESTEROL LEVEL 165 MG/DL (<200); CHOLESTEROL RISK RATIO 3.586 (<5); CREATININE FOR GFR 0.99 MG/DL (0.55-1.30); GLOMERULAR FILTRATION RATE > 60.0 (>60); GLUCOSE, FASTING 86 MG/DL (70-100); HDL CHOLESTEROL 46 MG/DL (>40); LDL CHOLESTEROL 107 MG/DL (<100); LIPASE 105 U/L (73-393); NON-HDL-C 119 MG/DL; POTASSIUM SERUM 3.8 MEQ/L (3.5-5.1); SODIUM LEVEL 138 MEQ/L (136-145); THYROID STIMULATING HORMONE 0.211 uIU/ML (0.358-3.740); TOTAL PROTEIN 6.7 GM/DL (6.4-8.2); TRIGLYCERIDES LEVEL 62 MG/DL (<150)
[2021-09-01 14:28] LABS: HEMOGLOBIN A1c 5.2 %
[2021-09-01 14:59] LABS: TOTAL 25(OH) VITAMIN D 57.9 NG/ML (30.0-100.0)
== END ==
LOC: M LAB 11:54
PROVIDERS: ATTEND Family Medicine
DX: R10.9 Unspecified abdominal pain (principal)

== ENCOUNTER → 2021-09-18 | Outpatient (CLI) | payer OTHER | LOC: M RAD 07:21 | PROVIDERS: ATTEND Family Medicine | DX: R10.11 Right upper quadrant pain (principal) ==

== ENCOUNTER → 2022-03-24 | Outpatient (CLI) | payer OTHER ==
[2022-03-24 08:25] LABS: HEMATOCRIT 42.7 % (36.0-47.0); HEMOGLOBIN 13.8 g/dl (12.0-15.5); MEAN CORPUSCULAR HEMOGLOBIN 29.1 pg (27.0-33.0); MEAN CORPUSCULAR HGB CONC 32.3 g/dl (32.0-36.5); MEAN CORPUSCULAR VOLUME 90.1 fl (80.0-96.0); PLATELET COUNT, AUTOMATED 270 10^3/uL (150-450); RED BLOOD COUNT 4.74 10^6/uL (4.00-5.40); WHITE BLOOD COUNT 9.5 10^3/uL (4.0-10.0)
[2022-03-24 08:52] LABS: ALBUMIN 3.9 G/DL (3.2-5.2); ALKALINE PHOSPHATASE 92 U/L (46-116); ALT/SGPT 13 U/L (7.0-40); AST/SGOT 18 U/L (<34); BILIRUBIN,TOTAL 0.3 MG/DL (0.3-1.2); BLOOD UREA NITROGEN 17 MG/DL (9-23); CALCIUM LEVEL 9.7 MG/DL (8.5-10.1); CARBON DIOXIDE LEVEL 29 MMOL/L (20-31); CHLORIDE LEVEL 101 MMOL/L (98-107); CHOLESTEROL LEVEL 202 MG/DL (<200); CHOLESTEROL RISK RATIO 4.65 (<5); CREATININE FOR GFR 0.98 MG/DL (0.55-1.30); GLOMERULAR FILTRATION RATE > 60.0 (>60); GLUCOSE, FASTING 85 MG/DL (60-100); HDL CHOLESTEROL 43.4 MG/DL (>40); LDL CHOLESTEROL 143.2 MG/DL (<100); NON-HDL-C 159 MG/DL; POTASSIUM SERUM 3.6 MMOL/L (3.5-5.1); SODIUM LEVEL 138 MMOL/L (136-145); TOTAL PROTEIN 6.9 G/DL (5.7-8.2); TRIGLYCERIDES LEVEL 77 MG/DL (<150)
[2022-03-24 08:53] LABS: TOTAL 25(OH) VITAMIN D 60.3 NG/ML (20.0-100.0)
[2022-03-24 08:54] LABS: THYROID STIMULATING HORMONE 1.693 uIU/ML (0.55-4.78)
[2022-03-24 10:01] LABS: HEMOGLOBIN A1c 4.9 % (4.0-6.0)
== END ==
LOC: M LAB 07:53
PROVIDERS: ATTEND Family Medicine
DX: D64.9 Anemia, unspecified (principal); R53.83 Other fatigue; E03.9 Hypothyroidism, unspecified

== ENCOUNTER → 2022-04-14 | Outpatient (CLI) | payer OTHER | LOC: M RAD 11:13 | PROVIDERS: ATTEND Family Medicine | DX: E07.9 Disorder of thyroid, unspecified (principal) ==

== ENCOUNTER → 2022-05-19 | Outpatient (CLI) | payer OTHER ==
[2022-05-19 14:22] LABS: HEMATOCRIT 38.5 % (36.0-47.0); HEMOGLOBIN 12.9 g/dl (12.0-15.5); MEAN CORPUSCULAR HEMOGLOBIN 28.7 pg (27.0-33.0); MEAN CORPUSCULAR HGB CONC 33.5 g/dl (32.0-36.5); MEAN CORPUSCULAR VOLUME 85.7 fl (80.0-96.0); PLATELET COUNT, AUTOMATED 283 10^3/uL (150-450); RED BLOOD COUNT 4.49 10^6/uL (4.00-5.40); WHITE BLOOD COUNT 10.9 10^3/uL (4.0-10.0)
[2022-05-19 14:49] LABS: IRON (FE) 69 UG/DL (50-170); TOTAL IRON BINDING CAPACITY 276 UG/DL (250-425)
[2022-05-19 14:53] LABS: ALBUMIN 3.4 G/DL (3.2-5.2); ALKALINE PHOSPHATASE 85 U/L (46-116); ALT/SGPT 29 U/L (7.0-40); AST/SGOT 24 U/L (<34); BILIRUBIN,TOTAL 0.3 MG/DL (0.3-1.2); BLOOD UREA NITROGEN 18 MG/DL (9-23); CALCIUM LEVEL 9.2 MG/DL (8.5-10.1); CARBON DIOXIDE LEVEL 30 MMOL/L (20-31); CHLORIDE LEVEL 104 MMOL/L (98-107); CHOLESTEROL LEVEL 152 MG/DL (<200); CHOLESTEROL RISK RATIO 4.48 (<5); CREATININE FOR GFR 0.91 MG/DL (0.55-1.30); GLOMERULAR FILTRATION RATE > 60.0 (>60); GLUCOSE, FASTING 88 MG/DL (60-100); HDL CHOLESTEROL 33.9 MG/DL (>40); NON-HDL-C 118 MG/DL; POTASSIUM SERUM 4.2 MMOL/L (3.5-5.1); SODIUM LEVEL 139 MMOL/L (136-145); THYROID STIMULATING HORMONE 1.399 uIU/ML (0.55-4.78); TOTAL 25(OH) VITAMIN D 70.7 NG/ML (20.0-100.0)
[2022-05-19 15:35] LABS: HEMOGLOBIN A1c 5.1 % (4.0-6.0)
[2022-05-19 22:09] LABS: LDL CHOLESTEROL 105.3 MG/DL (<100); TOTAL PROTEIN 6.3 G/DL (5.7-8.2); TRIGLYCERIDES LEVEL 64 MG/DL (<150)
== END ==
LOC: M LAB 13:49
PROVIDERS: ATTEND Family Medicine
DX: D64.9 Anemia, unspecified (principal)

== ENCOUNTER → 2022-11-15 | Outpatient (REF) | payer OTHER, SELFPAY, MEDICAID | LOC: M LAB REF 11:01 | PROVIDERS: ATTEND Family Medicine | DX: Z51.81 Encounter for therapeutic drug level monitoring (principal) ==

== ENCOUNTER → 2023-01-15 | Outpatient (CLI) | payer MEDICAID, OTHER ==
[2023-01-15 09:16] LABS: HEMATOCRIT 43.3 % (36.0-47.0); HEMOGLOBIN 14.7 g/dl (12.0-15.5); MEAN CORPUSCULAR HEMOGLOBIN 29.7 pg (27.0-33.0); MEAN CORPUSCULAR HGB CONC 33.9 g/dl (32.0-36.5); MEAN CORPUSCULAR VOLUME 87.5 fl (80.0-96.0); PLATELET COUNT, AUTOMATED 277 10^3/uL (150-450); RED BLOOD COUNT 4.95 10^6/uL (4.00-5.40); WHITE BLOOD COUNT 10.8 10^3/uL (4.0-10.0)
[2023-01-15 09:24] LABS: HEMOGLOBIN A1c 4.9 % (4.0-6.0)
[2023-01-15 09:47] LABS: ALBUMIN 3.9 G/DL (3.2-5.2); ALKALINE PHOSPHATASE 77 U/L (46-116); ALT/SGPT 13 U/L (7.0-40); AST/SGOT 9 U/L (<34); BILIRUBIN,TOTAL 0.3 MG/DL (0.3-1.2); BLOOD UREA NITROGEN 15 MG/DL (9-23); CALCIUM LEVEL 9.8 MG/DL (8.5-10.1); CARBON DIOXIDE LEVEL 28 MMOL/L (20-31); CHLORIDE LEVEL 103 MMOL/L (98-107); CHOLESTEROL LEVEL 184 MG/DL (<200); CHOLESTEROL RISK RATIO 4.19 (<5); CREATININE FOR GFR 0.85 MG/DL (0.55-1.30); GLOMERULAR FILTRATION RATE > 60.0 (>60); GLUCOSE, FASTING 88 MG/DL (60-100); HDL CHOLESTEROL 43.9 MG/DL (>40); LDL CHOLESTEROL 125.7 MG/DL (<100); NON-HDL-C 140.1 MG/DL; POTASSIUM SERUM 3.7 MMOL/L (3.5-5.1); SODIUM LEVEL 139 MMOL/L (136-145); THYROID STIMULATING HORMONE 0.865 uIU/ML (0.55-4.78); TOTAL 25(OH) VITAMIN D 82.8 NG/ML (20.0-100.0); TOTAL PROTEIN 7.3 G/DL (5.7-8.2); TRIGLYCERIDES LEVEL 72 MG/DL (<150)
== END ==
LOC: M LAB 08:13
PROVIDERS: ATTEND Family Medicine
DX: E03.9 Hypothyroidism, unspecified (principal); D64.9 Anemia, unspecified; R53.83 Other fatigue

== ENCOUNTER → 2023-02-23 | Outpatient (REF) ==
[2023-02-23 13:38] LABS: RSV AMPLIFICATION NEGATIVE (NEGATIVE)
== END ==
LOC: M EMP 08:21
PROVIDERS: ATTEND Family Medicine
DX: Z11.52 Encounter for screening for COVID-19 (principal)

== ENCOUNTER → 2023-05-05 | Outpatient (CLI) | payer OTHER ==
[2023-05-05 07:48] LABS: HEMATOCRIT 44.2 % (36.0-47.0); HEMOGLOBIN 14.8 g/dl (12.0-15.5); MEAN CORPUSCULAR HEMOGLOBIN 29.5 pg (27.0-33.0); MEAN CORPUSCULAR HGB CONC 33.5 g/dl (32.0-36.5); MEAN CORPUSCULAR VOLUME 88.2 fl (80.0-96.0); PLATELET COUNT, AUTOMATED 275 10^3/uL (150-450); RED BLOOD COUNT 5.01 10^6/uL (4.00-5.40); WHITE BLOOD COUNT 10.4 10^3/uL (4.0-10.0)
[2023-05-05 08:22] LABS: ALBUMIN 3.8 G/DL (3.2-5.2); ALKALINE PHOSPHATASE 76 U/L (46-116); ALT/SGPT 16 U/L (7.0-40); AST/SGOT 12 U/L (<34); BILIRUBIN,TOTAL 0.2 MG/DL (0.3-1.2); BLOOD UREA NITROGEN 17 MG/DL (9-23); CALCIUM LEVEL 9.3 MG/DL (8.5-10.1); CARBON DIOXIDE LEVEL 28 MMOL/L (20-31); CHLORIDE LEVEL 104 MMOL/L (98-107); CHOLESTEROL LEVEL 177 MG/DL (<200); CHOLESTEROL RISK RATIO 4.03 (<5); CREATININE FOR GFR 0.78 MG/DL (0.55-1.30); GLOMERULAR FILTRATION RATE > 60.0 (>60); GLUCOSE, FASTING 93 MG/DL (60-100); HDL CHOLESTEROL 43.9 MG/DL (>40); LDL CHOLESTEROL 121.3 MG/DL (<100); NON-HDL-C 133.1 MG/DL; POTASSIUM SERUM 4.3 MMOL/L (3.5-5.1); SODIUM LEVEL 137 MMOL/L (136-145); TOTAL PROTEIN 7.3 G/DL (5.7-8.2); TRIGLYCERIDES LEVEL 59 MG/DL (<150)
[2023-05-05 08:23] LABS: FOLLICLE STIMULATING HORMONE 7.5 mIU/ML; LUTEINIZING HORMONE 8.5 mIU/ML; THYROID STIMULATING HORMONE 0.182 uIU/ML (0.55-4.78)
[2023-05-05 08:24] LABS: ESTRADIOL 33.5 PG/ML; TOTAL 25(OH) VITAMIN D 83.6 NG/ML (20.0-100.0)
[2023-05-05 08:46] LABS: HEMOGLOBIN A1c 5.1 % (4.0-6.0)
== END ==
LOC: M LAB 06:34
PROVIDERS: ATTEND Family Medicine
DX: D64.9 Anemia, unspecified (principal)

== ENCOUNTER → 2023-05-25 | Outpatient (CLI) | payer OTHER | LOC: M RAD 07:53 | PROVIDERS: ATTEND Family Medicine | DX: R19.04 Left lower quadrant abdominal swelling, mass and lump (principal); R19.01 Right upper quadrant abdominal swelling, mass and lump ==

== ENCOUNTER → 2023-05-31 | Outpatient (CLI) | payer OTHER ==
[2023-05-31 12:42] LABS: HEMATOCRIT 42.7 % (36.0-47.0); HEMOGLOBIN 14.7 g/dl (12.0-15.5); MEAN CORPUSCULAR HEMOGLOBIN 30.2 pg (27.0-33.0); MEAN CORPUSCULAR HGB CONC 34.4 g/dl (32.0-36.5); MEAN CORPUSCULAR VOLUME 87.9 fl (80.0-96.0); PLATELET COUNT, AUTOMATED 271 10^3/uL (150-450); RED BLOOD COUNT 4.86 10^6/uL (4.00-5.40); WHITE BLOOD COUNT 9.9 10^3/uL (4.0-10.0)
[2023-05-31 13:14] LABS: HCG, SERUM QUALITATIVE NEGATIVE (NEGATIVE)
== END ==
LOC: M LAB 11:53
PROVIDERS: ATTEND Family Medicine
DX: G47.30 Sleep apnea, unspecified (principal)

== ENCOUNTER → 2023-08-04 | Outpatient (CLI) | payer OTHER ==
[~2023-08-04] MED LIST changes: -KLON1TAB PO; +KLON1TAB13 PO
== END ==
LOC: M RAD 10:18
PROVIDERS: ATTEND Obstetrics & Gynecology
DX: R10.2 Pelvic and perineal pain (principal)

== ENCOUNTER → 2025-03-20 | Outpatient (REF) | payer OTHER, MEDICAID ==
[2025-03-20 18:07] LABS: IRON (FE) 130.0 UG/DL (50-170)
[2025-03-20 18:09] LABS: PERCENT SATURATION 40.0 % (13.2-45.0)
== END ==
LOC: M LAB REF 17:23
DX: E61.1 Iron deficiency (principal)